=== PATIENT | male | born 1955 | race Caucasian/White ===

== ENCOUNTER 2017-11-25 09:15 | Observation (INO) | payer MEDICARE ==
[2017-11-25] MEDS ORDERED: SODIUM CHLORIDE 0.9% 1,000 ML IV STA (09:27)
[2017-11-25] MEDS ORDERED: MECLIZINE 12.5 MG TAB PO STA (09:28)
--- NOTE | 2017-11-25 09:30 | ED ---
Dizziness HPI - General Chief Complaint: Dizziness Stated Complaint: Nauseated, vomiting , Dizziness Time Seen by Provider: 11/25/17 09:15 Source: patient, EMS, RN notes reviewed Mode of arrival: EMS Limitations: no limitations - History of Present Illness Initial Comments: This is a 62-year-old male with a history of atrial fibrillation who woke up this morning with dizziness nausea vomiting. He vomited once prior to arrival. He was nauseated and was given Zofran for EMS. He states he had 2 recent hospitalizations between [facility] for dizziness associated with atrial fibrillation. He denies any current palpitations chest pain or chills sweats no focal upper or lower extremity weakness. He states the dizziness is quite profound and it is improved when he closes his eyes. He has no other complaints he has had some sinus congestion but no rhinorrhea no earaches sore throat or nose no cough or phlegm production. He is visiting from [place] at this time. MD Complaint: dizziness, lightheadedness - Related Data Home Medications Medication Instructions Recorded Confirmed ALPRAZolam [Xanax] 0.25 mg PO HS PRN 11/25/17 11/25/17 Aspirin EC [Ecotrin] 650 mg PO ONCE 11/25/17 11/25/17 Meclizine [Antivert] 12.5 mg PO TID PRN 11/25/17 11/25/17 Metoprolol Succinate (ER) [Toprol 12.5 mg PO DAILY@1200 11/25/17 11/25/17 XL] Allergies Allergy/AdvReac Type Severity Reaction Status Date / Time erythromycin base AdvReac Abdominal Verified 11/25/17 10:26 Pain Review of Systems ROS Statement: Those systems with pertinent positive or pertinent negative responses have been documented in the HPI. ROS Other: All systems not noted in ROS Statement are negative. Past Medical History Past Medical History: Atrial Fibrillation Past Surgical History: Bowel Resection Past Psychological History: No Psychological Hx Reported Smoking Status: Never smoker Past Alcohol Use History: None Reported Past Drug Use History: None Reported General Exam - General Exam Comments Initial Comments: This is a well-developed well-nourished awake alert oriented 3 male Limitations: no limitations General appearance: alert, in no apparent distress Head exam: Present: atraumatic, normocephalic, normal inspection Eye exam: Present: normal appearance, PERRL, EOMI. Absent: scleral icterus, conjunctival injection, periorbital swelling ENT exam: Present: normal exam, mucous membranes moist Neck exam: Present: normal inspection. Absent: tenderness, meningismus, lymphadenopathy Respiratory exam: Present: normal lung sounds bilaterally. Absent: respiratory distress, wheezes, rales, rhonchi, stridor Cardiovascular Exam: Present: regular rate, normal rhythm, normal heart sounds. Absent: systolic murmur, diastolic murmur, rubs, gallop, clicks GI/Abdominal exam: Present: soft, normal bowel sounds. Absent: distended, tenderness, guarding, rebound, rigid Extremities exam: Present: normal inspection, full ROM, normal capillary refill. Absent: tenderness, pedal edema, joint swelling, calf tenderness Back exam: Present: normal inspection Neurological exam: Present: alert, oriented X3, CN II-XII intact Psychiatric exam: Present: normal affect, normal mood Skin exam: Present: warm, dry, intact, normal color. Absent: rash Course Vital Signs 11/25/17 11/25/17 09:19 11:05 Temperature 97.8 F Pulse Rate 97 89 Respiratory 18 18 Rate Blood Pressure 133/77 135/77 O2 Sat by Pulse 99 97 Oximetry EKG Findings - EKG Results: EKG: interpreted by ERMD, sinus rhythm (Sinus rhythm rate of 84. Interval 146 QRS duration 78 QT since QTC of 360/434 evidence a right atrial enlargement no acute ST-T wave changes.) Medical Decision Making - Medical Decision Making I did reevaluate patient several occasions he still persistently having dizziness in spite of medications. The patient will be admitted for evaluation by neurology. Concerns are intractable vertigo possible posterior circulation involvement - Lab Data Result diagrams: 11/25/17 09:44 11/25/17 09:44 Lab Results 11/25/17 11/25/17 11/25/17 Range/Units 09:44 09:44 09:44 WBC 5.7 (3.8-10.6) k/uL RBC 5.22 (4.30-5.90) m/uL Hgb 15.7 (13.0-17.5) gm/dL Hct 45.7 (39.0-53.0) % MCV 87.5 (80.0-100.0) fL MCH 30.0 (25.0-35.0) pg MCHC 34.3 (31.0-37.0) g/dL RDW 12.5 (11.5-15.5) % Plt Count 187 (150-450) k/uL Neutrophils % 68 % Lymphocytes % 18 % Monocytes % 7 % Eosinophils % 3 % Basophils % 1 % Neutrophils # 3.9 (1.3-7.7) k/uL Lymphocytes # 1.0 (1.0-4.8) k/uL Monocytes # 0.4 (0-1.0) k/uL Eosinophils # 0.1 (0-0.7) k/uL Basophils # 0.1 (0-0.2) k/uL Sodium 142 (137-145) mmol/L Potassium 4.1 (3.5-5.1) mmol/L Chloride 107 (98-107) mmol/L Carbon Dioxide 24 (22-30) mmol/L Anion Gap 11 mmol/L BUN 17 (9-20) mg/dL Creatinine 1.14 (0.66-1.25) mg/dL Est GFR (MDRD) Af Amer >60 (>60 ml/min/1.73 sqM) Est GFR (MDRD) Non-Af >60 (>60 ml/min/1.73 sqM) Glucose 101 H (74-99) mg/dL Calcium 9.7 (8.4-10.2) mg/dL Magnesium 1.7 (1.6-2.3) mg/dL Total Bilirubin 0.9 (0.2-1.3) mg/dL AST 26 (17-59) U/L ALT 33 (21-72) U/L Alkaline Phosphatase 64 (38-126) U/L Total Creatine Kinase 88 (55-170) U/L CK-MB (CK-2) 0.6 (0.0-2.4) ng/mL CK-MB (CK-2) Rel Index 0.7 Troponin I <0.012 (0.000-0.034) ng/mL Total Protein 6.5 (6.3-8.2) g/dL Albumin 4.1 (3.5-5.0) g/dL Urine Color Urine Appearance (Clear) Urine pH (5.0-8.0) Ur Specific [place] (1.001-1.035) Urine Protein (Negative) Urine Glucose (UA) (Negative) Urine Ketones (Negative) Urine Blood (Negative) Urine Nitrite (Negative) Urine Bilirubin (Negative) Urine Urobilinogen (<2.0) mg/dL Ur Leukocyte Esterase (Negative) 11/25/17 Range/Units 10:51 WBC (3.8-10.6) k/uL RBC (4.30-5.90) m/uL Hgb (13.0-17.5) gm/dL Hct (39.0-53.0) % MCV (80.0-100.0) fL MCH (25.0-35.0) pg MCHC (31.0-37.0) g/dL RDW (11.5-15.5) % Plt Count (150-450) k/uL Neutrophils % % Lymphocytes % % Monocytes % % Eosinophils % % Basophils % % Neutrophils # (1.3-7.7) k/uL Lymphocytes # (1.0-4.8) k/uL Monocytes # (0-1.0) k/uL Eosinophils # (0-0.7) k/uL Basophils # (0-0.2) k/uL Sodium (137-145) mmol/L Potassium (3.5-5.1) mmol/L Chloride (98-107) mmol/L Carbon Dioxide (22-30) mmol/L Anion Gap mmol/L BUN (9-20) mg/dL Creatinine (0.66-1.25) mg/dL Est GFR (MDRD) Af Amer (>60 ml/min/1.73 sqM) Est GFR (MDRD) Non-Af (>60 ml/min/1.73 sqM) Glucose (74-99) mg/dL Calcium (8.4-10.2) mg/dL Magnesium (1.6-2.3) mg/dL Total Bilirubin (0.2-1.3) mg/dL AST (17-59) U/L ALT (21-72) U/L Alkaline Phosphatase (38-126) U/L Total Creatine Kinase (55-170) U/L CK-MB (CK-2) (0.0-2.4) ng/mL CK-MB (CK-2) Rel Index Troponin I (0.000-0.034) ng/mL Total Protein (6.3-8.2) g/dL Albumin (3.5-5.0) g/dL Urine Color Yellow Urine Appearance Clear (Clear) Urine pH 7.0 (5.0-8.0) Ur Specific [place] 1.016 (1.001-1.035) Urine Protein Trace H (Negative) Urine Glucose (UA) Negative (Negative) Urine Ketones Negative (Negative) Urine Blood Negative (Negative) Urine Nitrite Negative (Negative) Urine Bilirubin Negative (Negative) Urine Urobilinogen <2.0 (<2.0) mg/dL Ur Leukocyte Esterase Negative (Negative) - Radiology Data Radiology results: report reviewed (I did review the imaging and reports no acute findings.), image reviewed Disposition Clinical Impression: Dizziness of unknown cause Disposition: ADMITTED IP TO THIS [facility] Condition: Stable Referrals: Nonstaff,Physician [Primary Care Provider] - 1-2 days
[2017-11-25 10:10] LABS: Basophils # (A) 0.1 k/uL (0-0.2); Basophils % (A) 1 %; Eosinophils # (A) 0.1 k/uL (0-0.7); Eosinophils % (A) 3 %; HCT 45.7 % (39.0-53.0); HGB 15.7 gm/dL (13.0-17.5); Lymphocytes % (A) 18 %; MCHC 34.3 g/dL (31.0-37.0); MCV 87.5 fL (80.0-100.0); Mean Platelet Volume 7.6; Monocytes # (A) 0.4 k/uL (0-1.0); Monocytes % (A) 7 %; Neutrophils # (A) 3.9 k/uL (1.3-7.7); Neutrophils % (A) 68 %; Platelet Count 187 k/uL (150-450); RBC 5.22 m/uL (4.30-5.90); RDW 12.5 % (11.5-15.5); WBC 5.7 k/uL (3.8-10.6)
[2017-11-25 10:15] LABS: ALT 33 U/L (21-72); AST 26 U/L (17-59); Albumin 4.1 g/dL (3.5-5.0); Alkaline Phosphatase 64 U/L (38-126); Anion Gap 11 mmol/L; Blood Urea Nitrogen 17 mg/dL (9-20); Calcium 9.7 mg/dL (8.4-10.2); Carbon Dioxide 24 mmol/L (22-30); Chloride 107 mmol/L (98-107); Glucose 101 mg/dL (74-99); Magnesium 1.7 mg/dL (1.6-2.3); Potassium 4.1 mmol/L (3.5-5.1); Sodium 142 mmol/L (137-145); Total Bilirubin 0.9 mg/dL (0.2-1.3); Total Protein 6.5 g/dL (6.3-8.2)
--- NOTE | 2017-11-25 10:21 | CT ---
EXAMINATION TYPE: CT brain wo con DATE OF EXAM: 11/25/2017 COMPARISON: NONE HISTORY: Dizziness, Nausea, Vomiting CT DLP: 1054.[address] of the brain was performed. The ventricles, basal cisterns and sulci overlying the cerebral convexities demonstrate mild enlargem ent. There is no evidence for intracranial hemorrhage or sulcal effacement. There is decreased attenuation about the periventricular white matter and deep white matter of both c erebral hemispheres, compatible with chronic small vessel ischemia. Differential diagnosis does inclu de demyelination. No mass effects are seen.No midline shift. Osseous calvarium is intact. If symptoms persist consider MRI. IMPRESSION: 1. Age related atrophic and chronic small vessel ischemic change without acute intracranial process s een at this time.
[2017-11-25 10:26] LABS: Creatine Kinase 88 U/L (55-170)
[2017-11-25 10:39] LABS: Creatine Kinase MB 0.6 ng/mL (0.0-2.4); Troponin I <0.012 ng/mL (0.000-0.034)
[2017-11-25 11:06] LABS: Appearance,Urine Clear (Clear); Color,Urine Yellow; Protein,Urine Trace (Negative); Specific Gravity,Urine 1.016 (1.001-1.035)
[2017-11-25 11:07] LABS: Bilirubin,Urine Negative (Negative); Blood,Urine Negative (Negative); Glucose,Urine (UA) Negative (Negative); Ketones,Urine Negative (Negative); Leukocyte Esterase,Urine Negative (Negative); Nitrite,Urine Negative (Negative); Urobilinogen,Urine <2.0 mg/dL (<2.0)
[2017-11-25] MEDS ORDERED: NALOXONE 0.4 MG/ML 1 ML VIAL IV PRN (12:48)
[2017-11-25] MEDS ORDERED: MECLIZINE 12.5 MG TAB PO PRN ×2 (12:51→19:43)
[2017-11-25] MEDS ORDERED: ALPRAZolam 0.25 MG TAB PO PRN (12:51)
[2017-11-25] MEDS ORDERED: ASPIRIN 325 MG TAB PO ONE (13:00)
[2017-11-25] MEDS: SODIUM CHLORIDE 0.9% 1,000 ML IV SCH (13:45)
[2017-11-25] MEDS ORDERED: ACETAMINOPHEN TAB 325 MG TAB PO PRN (14:07)
[2017-11-25] MEDS ORDERED: RX INFO: IV CONTRAST WAS GIVEN 1 EACH MISC MISCELLANE PRN (14:12)
--- NOTE | 2017-11-25 14:37 | P.HPIM ---
History of Present Illness H&P Date: 11/25/17 Chief Complaint: Dizziness 62-year-old male with a history of atrial fibrillation who woke up this morning with dizziness, nausea and vomiting. He vomited once prior to arrival to the ER. He was nauseated and was given Zofran for EMS. He states he had 2 recent hospitalizations between [facility] for dizziness associated with atrial fibrillation. He had an echocardiogram during one of his hospitalizations and that showed normal LV function, grade 1 diastolic dysfunction. Upon review of the echocardiogram report there was no gross valvular abnormalities noted. He denies any current palpitations, chest pain or shortness of breath. No focal tingling, numbness or weakness. He denied any slurred speech, double vision or blurry vision. He states the dizziness is quite profound and it is improved when he closes his eyes. He describes it as a spinning sensation and imbalance, he is afraid to get up and walk because he knows he will fall if he doesn't that. He never had this type of dizziness in the past. Patient has history of noncompliance with medications, he is supposed to take metoprolol and xarelto for his paroxysmal atrial fibrillation but he has not taken the xarelto over the last month. He has no other complaints other than some sinus congestion but no rhinorrhea, no earaches, sore throat, no cough or phlegm production. He is visiting from [place] at this time. Review of Systems 12 point review of system was performed, negative except for HPI Past Medical History Past Medical History: Atrial Fibrillation Additional Past Medical History / Comment(s): ALLERGIC rhinitis, anxiety, suspected sleep apnea History of Any Multi-Drug Resistant Organisms: None Reported Past Surgical History: Bowel Resection Past Psychological History: No Psychological Hx Reported Smoking Status: Never smoker Past Alcohol Use History: None Reported Past Drug Use History: None Reported - Past Family History Father Family Medical History: Hypertension Medications and Allergies Home Medications Medication Instructions Recorded Confirmed Type ALPRAZolam [Xanax] 0.25 mg PO HS PRN 11/25/17 11/25/17 History Aspirin EC [Ecotrin] 650 mg PO ONCE 11/25/17 11/25/17 History Meclizine [Antivert] 12.5 mg PO TID PRN 11/25/17 11/25/17 History Metoprolol Succinate (ER) [Toprol 12.5 mg PO DAILY@1200 11/25/17 11/25/17 History XL] Allergies Allergy/AdvReac Type Severity Reaction Status Date / Time erythromycin base AdvReac Abdominal Verified 11/25/17 10:26 Pain Physical Exam Vitals: Vital Signs Temp Pulse Resp BP Pulse Ox 11/25/17 11:05 89 18 135/77 97 11/25/17 09:19 97.8 F 97 18 133/77 99 Intake and Output 11/24/17 11/25/17 11/25/17 22:59 06:59 14:59 Other: Weight 70.307 kg Patient Weight 11/26/17 06:59 Weight 70.307 kg Constitutional: No acute distress, conversant, pleasant Eyes:Anicteric sclerae, moist conjunctiva, no lid-lag, PERRLA, ENMT: Oropharynx clear, no erythema, exudates Neck: Supple, FROM, no masses, or JVD, No carotid bruits, No thyromegaly Lungs: Clear to auscultation, Clear to percussion, Normal respiratory effort, no accessory muscle use Cardiovascular: Heart regular in rate and rhythm, No murmurs, gallops, or rubs, No peripheral edema Abdominal: Soft, Nontender, no guarding, rebound or rigidity, Normoactive bowel sounds, No hepatomegaly, No splenomegaly, No palpable mass Skin: Normal temperature, tone, texture, turgor, no induration, No subcutaneous nodules, No rash, lesions, No ulcers Extremities: No digital cyanosis, No clubbing, Pedal pulses intact and symmetrical, Radial pulses intact and symmetrical, No calf tenderness Psychiatric: Alert and oriented to person, place and time, appropriate affect, intact judgement Neuro: Muscles Strength 5/5 in all 4 extremities, Sensation to light touch grossly present throughout, Cranial nerves II-XII grossly intact, no focal sensory deficits Results CBC & Chem 7: 11/25/17 09:44 11/25/17 09:44 Labs: Abnormal Lab Results - Last 24 Hours (Table) 11/25/17 11/25/17 Range/Units 09:44 10:51 Glucose 101 H (74-99) mg/dL Urine Protein Trace H (Negative) Assessment and Plan Plan: #1 Acute vertigo/dizziness: Rule out transient ischemic attack versus stroke posterior circulation Medical records from [facility] Labs reviewed Admit to observation Physical therapy and occupational therapy Consult neurology Meclizine when necessary Aspirin 325 mg by mouth daily MRI of the brain to rule out stroke Lipid profile CT angiogram of the head and neck to rule out's stenosis #2 paroxysmal atrial fibrillation: Currently in sinus rhythm Continue metoprolol and xarelto #3 DVT prophylaxis: SCDs
--- NOTE | 2017-11-25 15:44 | CT ---
EXAMINATION TYPE: CT angio head neck DATE OF EXAM: 11/25/2017 HISTORY: Dizziness today. COMPARISON: MRI CT dated 11/25/2017 CT DLP: 293.8 mGycm. Automated Exposure Control for Dose Reduction was Utilized. TECHNIQUE: CTA scan of the neck is performed with IV Contrast, patient injected with 65 mL of Omnipa que 350, axial images are obtained, coronal and sagittal reformatted images are reviewed. Three-D rec onstructed images are created on an independent workstation and reviewed. FINDINGS: Carotid/Vascular Structures: There is a normal anatomic branch pattern of the great vessels from the aortic arch. The common carotid arteries are patent bilaterally as are the carotid bifurcations and v isualized portions of the internal carotid arteries without hemodynamically significant stenosis, vega cific and noncalcific atheromatous plaquing. No focal outpouching, dissection, or aneurysm is seen. N o occlusion is noted. The left vertebral artery is codominant aerated no significant stenosis. Some atherosclerosis is seen of the proximal vertebral artery of less than 50% luminal narrowing. Other: Mild centrilobular emphysematous changes are seen within the lung apices. Osseous structures a re intact. Paranasal sinuses are well aerated and their visualized portions as are the mastoid air ce lls. Multilevel mild degenerative changes of the cervical spine are seen. Small posterior disc osteop hyte complex at C6-C7 creates mild spinal canal stenosis. The thyroid gland is unremarkable. Parotid glands and submandibular glands are symmetric. No gross evidence of adenopathy. Oropharynx is patent. Valleculae and piriform sinuses are unremarkable. IMPRESSION: No hemodynamically significant stenosis within either carotid arterial system is visuali zed. No evidence of vascular dissection, aneurysm, or occlusion.
--- NOTE | 2017-11-25 17:12 | MR ---
EXAMINATION TYPE: MR brain wo con DATE OF EXAM: 11/25/2017 COMPARISON: CT brain earlier today HISTORY: vertigo per order. TECHNIQUE: Multiplanar, multisequence imaging of the brain and brainstem is performed without IV cont rast. FINDINGS: Diffusion weighted images demonstrate no evidence of a recent infarct or other diffusion abnormality. There is no extraaxial fluid collection or significant white matter signal abnormality. The ventricu lar system and cisternal spaces are normal in size and appearance. The brain volume is age appropria te. Midline structures demonstrate normal morphology. The craniocervical junction appears within normal limits. Normal vascular flow voids are present. The visualized sinuses are clear and the globes are i ntact. Some patchy increased fluid signal right mastoid air cells as seen on axial image 3. IMPRESSION: No evidence of a recent infarct. Possible mild right-sided mastoiditis, correlate clinica lly otherwise fairly unremarkable study.
[2017-11-25] MEDS: RIVAROXABAN 15 MG TAB PO SCH (17:35)
[2017-11-25] MEDS: ASPIRIN 325 MG TAB PO STA ×2 (17:36→17:44)
[2017-11-26 07:28] LABS: Basophils % (A) 1 %; Eosinophils # (A) 0.2 k/uL (0-0.7); Eosinophils % (A) 4 %; HCT 41.1 % (39.0-53.0); HGB 13.8 gm/dL (13.0-17.5); Lymphocytes # (A) 1.1 k/uL (1.0-4.8); Lymphocytes % (A) 20 %; MCH 29.7 pg (25.0-35.0); MCHC 33.4 g/dL (31.0-37.0); MCV 88.9 fL (80.0-100.0); Mean Platelet Volume 8.5; Monocytes # (A) 0.6 k/uL (0-1.0); Monocytes % (A) 11 %; Neutrophils # (A) 3.4 k/uL (1.3-7.7); Neutrophils % (A) 62 %; Platelet Count 184 k/uL (150-450); RBC 4.63 m/uL (4.30-5.90); RDW 13.5 % (11.5-15.5); WBC 5.5 k/uL (3.8-10.6)
[2017-11-26 07:29] VITALS: RESP 16
[2017-11-26 07:46] LABS: ALT 32 U/L (21-72); AST 20 U/L (17-59); Albumin 3.3 g/dL (3.5-5.0); Alkaline Phosphatase 52 U/L (38-126); Anion Gap 9 mmol/L; Blood Urea Nitrogen 16 mg/dL (9-20); Carbon Dioxide 25 mmol/L (22-30); Chloride 106 mmol/L (98-107); Cholesterol 148 mg/dL (<200); Glucose 109 mg/dL (74-99); HDL Cholesterol 44 mg/dL (40-60); LDL Cholesterol,Calculated 90 mg/dL (0-99); Magnesium 1.8 mg/dL (1.6-2.3); Phosphorus 2.8 mg/dL (2.5-4.5); Potassium 3.9 mmol/L (3.5-5.1); Sodium 140 mmol/L (137-145); Total Bilirubin 0.7 mg/dL (0.2-1.3); Total Protein 5.6 g/dL (6.3-8.2); Triglycerides 71 mg/dL (<150)
[2017-11-26] MEDS: RIVAROXABAN 15 MG TAB PO SCH (08:25)
[2017-11-26] MEDS ORDERED: ASPIRIN 325 MG TAB PO SCH (09:00)
--- NOTE | 2017-11-26 09:50 | CONS ---
CONSULTATION DATE OF CONSULTATION: 11/25/2017 CHIEF COMPLAINT: Dizziness. HISTORY OF PRESENT ILLNESS: Mr. Zhong is a pleasant 62-year-old male, who is being evaluated today on 11/25/2017 by the neurology service per the request of Dr. Wang for dizziness. The patient states that he woke up this morning and had a severe spinning sensation. He was unable to get out of the bed due to the severity of the dizziness. The symptoms would worsen with any movement. He was able to slowly get to his bedroom where he became quite nauseous and did vomit. He called 911 and he needed assistance to walk to the ambulance. He had another vomiting episode in the ambulance. He denies having any headache or lateralizing numbness or weakness. He states that he has had vertigo in the past but never this severe. A CT scan of the brain was done in the emergency room which showed generalized atrophy and small-vessel ischemic changes. A CT angiogram of the brain and neck were normal. His CBC, comprehensive metabolic profile and urinalysis were reviewed and were normal. The patient did have an MRI of the brain which showed no intracranial abnormalities. There was evidence of right mastoiditis. At the time of my evaluation, he has been started on meclizine 12.5 mg. He reports slight improvement in the intensity of the symptoms and denies resolution. PAST MEDICAL HISTORY: Atrial fibrillation, anxiety disorder, sleep disorder, history of bowel resection. SOCIAL HISTORY: He denies any tobacco or alcohol or drug use. HOME MEDICATIONS: Reviewed in the chart. ALLERGIES: ERYTHROMYCIN. REVIEW OF SYSTEM: CONSTITUTIONAL: Negative. EYES: Negative. ENT: As mentioned above. CARDIOVASCULAR: As mentioned above. RESPIRATORY: Negative. NEUROLOGICAL: As mentioned above. GASTROINTESTINAL: As mentioned above. GENITOURINARY: Negative. DERMATOLOGICAL: Negative. PSYCHIATRIC: Positive for anxiety disorder. MUSCULOSKELETAL: Negative. ENDOCRINE: Negative. PHYSICAL EXAM: Vital signs show a temperature of 97.9, pulse 87, respiration 18, blood pressure 123/76. GENERAL APPEARANCE: The patient is a well-developed male, who appears to be in no acute distress. HEENT: Normocephalic, atraumatic, no facial asymmetry is seen, extraocular muscles are intact with no nystagmus seen. NECK: Supple with no masses felt. CARDIOVASCULAR: Regular rate and rhythm. ABDOMEN: Nontender nondistended. Extremities showed no edema or clubbing. Neurological exam: The patient is alert aware and oriented x3. Speech and language are normal. Strength is full in all 4 extremities. Sensory exam was normal to light touch in all 4 extremities. No facial asymmetry is seen on cranial nerve testing. No tremors or seizure-like activity is seen. IMPRESSION: 1. Intractable vertigo. 2. Mastoiditis. RECOMMENDATION: The patient continues to have significant vertigo symptoms. His MRI and CT of the brain showed no intracranial abnormalities. The patient was reassured from that standpoint as his symptoms do not appear to be due to any neurological etiologies. I will consult ENT to evaluate the patient. Until then, I will increase his Antivert to 25 mg. Continue the rest of your current workup and management. I will continue to follow with you. Further recommendations to follow. Thank you for allowing me to participate in the care of your patient. If you have any questions, please feel free to contact me. YESENIA / EVETTE: [id number] /
[2017-11-26 11:47] VITALS: BP 138/72; PULSE 80; TEMP 98.5
[2017-11-26] MEDS ORDERED: METOPROLOL SUCCINATE (ER) 25 MG TAB.ER.24H PO SCH (12:00)
[2017-11-26] MEDS: SODIUM CHLORIDE 0.9% 1,000 ML IV SCH (14:10)
--- NOTE | 2017-11-26 14:36 | P.DS ---
Providers Date of admission: 11/25/17 12:48 Attending physician: Fabiana Wang DO Consults: 11/25/17 12:49 Consult Physician Routine Consulting Provider: Krysten Macdonald Consult Reason/Comments: Intractable dizziness Do you want consulting provider notified?: Yes 11/25/17 19:42 Consult Physician Routine Consulting Provider: Quinten Covington Reason/Comments: Vertigo, mastoiditis Do you want consulting provider notified?: Yes, Notify in am Primary care physician: Physician Nonstaff Hospital Course: 62-year-old male with a history of atrial fibrillation who woke up this morning with dizziness, nausea and vomiting. He vomited once prior to arrival to the ER. He was nauseated and was given Zofran for EMS. He states he had 2 recent hospitalizations between [facility] [place] for dizziness associated with atrial fibrillation. He had an echocardiogram during one of his hospitalizations and that showed normal LV function, grade 1 diastolic dysfunction. Upon review of the echocardiogram report there was no gross valvular abnormalities noted. He denies any current palpitations, chest pain or shortness of breath. No focal tingling, numbness or weakness. He denied any slurred speech, double vision or blurry vision. He states the dizziness is quite profound and it is improved when he closes his eyes. He describes it as a spinning sensation and imbalance, he is afraid to get up and walk because he knows he will fall if he doesn't that. He never had this type of dizziness in the past. Patient has history of noncompliance with medications, he is supposed to take metoprolol and xarelto for his paroxysmal atrial fibrillation but he has not taken the xarelto over the last month. He has no other complaints other than some sinus congestion but no rhinorrhea, no earaches, sore throat, no cough or phlegm production. He is visiting from [place] at this time. Patient was admitted to the hospital for presumed transient ischemic attack/ acute CVA. In the emergency department had a head computed tomography scan that did not show any evidence of acute intracranial process. He was placed on telemetry which was showing normal sinus rhythm. His records from the outside hospitalization were reviewed. He had a complete CVA workup with CT angiogram of the head and neck and that did not show any evidence of stenosis or thrombosis in any of the arteries imaged. He also had a MRI of the brain that did not show any evidence of acute CVA. I did not order an echocardiogram because he just had one several months ago during his last hospitalization. He was evaluated by neurology service who thought that the vertigo was caused by some inner ear pathology vs. sec to sinusitis. Patient was advised to follow- up with ENT in the office for an exam. An appointment was scheduled for the patient at the ENT office. Currently patient is not having any further vertigo , he is able to get up and walk by himself. He was discharged home in a stable condition. Patient Condition at Discharge: Stable Plan - Discharge Summary Discharge Rx Participant: No New Discharge Prescriptions: New Acetaminophen Tab [Tylenol] 650 mg PO Q6HR PRN tab PRN Reason: Mild Pain Or Fever > 100.5 Aspirin 325 mg PO DAILY tab Rivaroxaban [Xarelto] 15 mg PO BID-W/MEALS tab Continue Aspirin EC [Ecotrin] 650 mg PO ONCE Metoprolol Succinate (ER) [Toprol XL] 12.5 mg PO DAILY@1200 ALPRAZolam [Xanax] 0.25 mg PO HS PRN PRN Reason: Anxiety Meclizine [Antivert] 12.5 mg PO TID PRN 10 Days #30 tab PRN Reason: Vertigo Discharge Medication List ALPRAZolam [Xanax] 0.25 mg PO HS PRN 11/25/17 [History] Aspirin EC [Ecotrin] 650 mg PO ONCE 11/25/17 [History] Metoprolol Succinate (ER) [Toprol XL] 12.5 mg PO DAILY@1200 11/25/17 [History] Acetaminophen Tab [Tylenol] 650 mg PO Q6HR PRN tab 11/26/17 [Rx] Aspirin 325 mg PO DAILY tab 11/26/17 [Rx] Meclizine [Antivert] 12.5 mg PO TID PRN 10 Days #30 tab 11/26/17 [Rx] Rivaroxaban [Xarelto] 15 mg PO BID-W/MEALS tab 11/26/17 [Rx] Follow up Appointment(s)/Referral(s): Quinten Covington DO [Doctor of Osteopathic Medicine] - 12/04/17 9:45 am Nonstaff,Physician [Primary Care Provider] - 1-2 days Discharge Disposition: HOME SELF-CARE
== END 2017-11-26 14:11 | disposition home or self-care (01) ==
LOC: EC 09:15 → 3OBS 12:48
PROVIDERS: ADMIT Internal Medicine; ATTEND Internal Medicine
DX: H70.91 Unspecified mastoiditis, right ear (principal); F41.9 Anxiety disorder, unspecified; I48.0 Paroxysmal atrial fibrillation; Z91.14 Patient's other noncompliance with medication regimen; Z79.82 Long term (current) use of aspirin; Z79.899 Other long term (current) drug therapy; Z88.1 Allergy status to other antibiotic agents; Z82.49 Family history of ischemic heart disease and other diseases of the circulatory system; Z90.49 Acquired absence of other specified parts of digestive tract; G47.9 Sleep disorder, unspecified
CPT/HCPCS: 99285 ×2; 96360 ×2; 96361 ×4; 36415; 93005; 97161; 80061; 80053 ×2; 82550; 82553; 83735 ×2; 84100; 84484; 85025 ×2; 81003; 70496; 70450; 70498; 70551; G0378 ×2; Q9967

== ENCOUNTER 2018-04-15 11:50 | Day surgery (SDC) | payer MEDICARE ==
[2018-04-13 09:57] VITALS: BMI 23.4
[~2018-04-15 11:50] MED LIST: LACTATED RINGERS 1,000 ML IV SCH; LIDOCAINE 1% 20 ML VIAL (10MG/ML) FOR IV START INTRADERMA PRN; MIDAZOLAM 2 MG/2 ML VIAL IV PRN; Pre Op ABX Message 1 EACH MISC MISCELLANE ONE
[2018-04-15] MEDS ORDERED: ALBUTEROL NEB (CONC) 2.5 MG/0.5 ML INHALATION ONE (12:00)
[2018-04-15] MEDS ORDERED: ATROPINE SULFATE 0.4 MG/ML 1 ML VIAL IM ONE (12:00)
[2018-04-15] MEDS ORDERED: LIDOCAINE 2% (PF) 20 MG/ML 10 ML AMP INHALATION STA (12:15)
[2018-04-15 12:23] VITALS: RESP 16; TEMP 98.1
[2018-04-15] MEDS ORDERED: PROPOFOL 10 MG/ML 20 ML VIAL IV ONE (12:47)
[2018-04-15] MEDS ORDERED: GLYCOPYRROLATE 0.2 MG/ML 2 ML VIAL ONE (12:47)
[2018-04-15] MEDS ORDERED: KETAMINE 10 MG/ML 20 ML VIAL ONE (12:47)
[2018-04-15] MEDS ORDERED: MIDAZOLAM 2 MG/2 ML VIAL ONE (12:47)
[2018-04-15] MEDS ORDERED: LIDOCAINE 1% INJ 10MG/ML (20 ML MDV) INTRATRACH ONE (13:04)
[2018-04-15 14:01] VITALS: BP 119/72; PULSE 100
--- NOTE | 2018-04-15 19:08 | PCN ---
PROCEDURE NOTE PROCEDURES: Bronchoscopy, airway examination, therapeutic lavage, BAL right middle lobe. PREOP DIAGNOSIS: Cough. POSTOP DIAGNOSIS: Cough. OPERATORS: Dr. Barroso and Dr. Carrizales. There was informed consent. There was universal timeout. ANESTHESIA: LINING IRONER provided general anesthesia or unconscious sedation. PROCEDURE: The procedure was done in room #1. After the patient was adequately sedated and being fully monitored, the bronchoscope was inserted through the right nostril. It passed through the right nasopharynx into the oropharynx. The hypopharynx was identified and topicalized. The hypopharyngeal structures appeared normal including anterior commissure, true cords, false cords, arytenoids, piriform sinuses, right and left vallecula and epiglottis. After topicalization, the bronchoscope was pushed through the glottic opening into the trachea. Trachea appeared normal. Trachea ora was sharp. Right and left mainstem were topicalized. Right upper lobe and its 3 segments right middle lobe and its 2 segments right lower lobe and its 5 segments left upper lobe proper and its 2 segments the lingula and its 2 segments and the left lower lobe and its 4 segments all appeared completely normal. There are no masses or tumors. The patient tolerated the procedure well. The bronchoscope was wedged into the right middle lobe. The BAL took place. The patient tolerated the procedure well and the bronchoscope was withdrawn. The patient will be recovered. MMODL / IJN: [id number] /
[2018-04-15 20:12] LABS: Appearance,BF Hazy; Color,BF Red; Nucleated Cells, Body Fluid 45 /uL; RBC, Body Fluid 2800 /uL
[2018-04-15 20:13] LABS: Mononuclear WBC,Body Fluid 42 %; Polynuclear WBC,Body Fluid 58 %
== END 2018-04-15 13:50 | disposition home or self-care (01) ==
LOC: ORWHC2ENDO 11:50
PROVIDERS: ATTEND Internal Medicine Critical Care Medicine
DX: R05 Cough (principal); I48.91 Unspecified atrial fibrillation; N40.0 Benign prostatic hyperplasia without lower urinary tract symptoms; I10 Essential (primary) hypertension; J30.89 Other allergic rhinitis; Z79.899 Other long term (current) drug therapy; Z88.1 Allergy status to other antibiotic agents
CPT/HCPCS: 94640; 88108; 88305; 89050; 87252; 87070; 87205; 87116; 87102; 87206; 31624; J2250; J0461; J2001 ×2; J2704; 87496; 87498; 87502; 87529; 87634; 87798

== ENCOUNTER 2024-03-11 03:07 | Emergency (ER) | payer MEDICARE ==
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
[2024-03-11] MEDS: dexAMETHasone 2 MG TAB PO STA (06:17)
[2024-03-11] MEDS: AMOXIC-POT CLAV 875-125MG 1 EACH TAB PO STA (06:17)
--- NOTE | 2024-03-11 07:19 | XR ---
EXAM: XR Chest, 2 Views CLINICAL HISTORY: Its. reason XR Reason: cough TECHNIQUE: Frontal and lateral views of the chest. COMPARISON: No relevant prior studies available. FINDINGS: Lungs: Slight hyperinflation of the lungs and attenuation of the peripheral lung markings which may partly reflect good inspiratory effort chest. Mild emphysema can give this appearance. Mild streaky densities in the lung bases, likely atelectasis. Pleural space: Unremarkable. No pneumothorax. Heart: Unremarkable. No cardiomegaly. Mediastinum: Unremarkable. Normal mediastinal contour. Bones/joints: Degenerative endplate changes in the mid to lower thoracic spine. No acute fracture. IMPRESSION: 1. Mild bibasilar atelectasis. Follow-up to exclude early infiltrate as indicated. 2. Findings suggestive of mild emphysema
[2024-03-11 07:30] VITALS: BP 120/72; PULSE 80; RESP 18; TEMP 97.8
== END 2024-03-11 06:33 | disposition home or self-care (01) ==
LOC: EC 03:07
DX: J18.9 Pneumonia, unspecified organism (principal); Z88.1 Allergy status to other antibiotic agents
CPT/HCPCS: 93005; 87636; 71046; 99284; J8540

== ENCOUNTER 2024-04-08 15:52 | Inpatient (IN) | payer MEDICARE ==
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
--- NOTE | 2024-04-08 17:17 | XR ---
EXAMINATION TYPE: XR Hip 2 views RT and AP Pelvis DATE OF EXAM: 04/08/2024 COMPARISON: NONE HISTORY: 68-year-old male fall injury FINDINGS: Bilateral iliac horns. SI joints appear symmetric and intact as does the pubic symphysis. There is at least mild degenerative change both hips with prominent marginal spurring. Superior femoral head nec k junction osseous excrescences are present. There is a basicervical fracture of the right femoral ne ck displaced posteriorly by 1.4 cm. Nonspecific 1.1 cm calcification in the lower left pelvis may be within the prostate gland. Bilateral iliac horns. IMPRESSION: 1. Basicervical fracture of the right femoral neck with 1.4 cm of posterior displacement. 2. Mild bilateral hip OA. 3. Bilateral iliac horns suggesting nail-patella syndrome. Clinically correlate.
--- NOTE | 2024-04-08 17:22 | XR ---
EXAMINATION TYPE: XR chest 1V DATE OF EXAM: 04/08/2024 COMPARISON: 03/11/2024 HISTORY: 68-year-old male presurgical clearance TECHNIQUE: Single frontal view of the chest is obtained. FINDINGS: Heart normal size. Aortopulmonary vasculature within normal limits. Mild interstitial prom inence of the chronic appearance. No consolidation or pleural effusion. IMPRESSION: Chronic appearing changes. No acute process seen.
[2024-04-08] MEDS: HYDROmorphone 0.5 MG/0.5 ML SYRINGE IVP STA (17:26)
[2024-04-08] MEDS ORDERED: MAG HYDROX/AL HYDROX/SIMETH 30 ML CUP PO PRN (17:27)
[2024-04-08] MEDS ORDERED: NALOXONE 0.4 MG/ML 1 ML VIAL IV PRN (17:27)
[2024-04-08] MEDS: DIPH,PERTUS(ACELL)TETVAC-LF 0.5 ML VIAL IM ONE (17:33)
[2024-04-08] MEDS: SODIUM CHLORIDE 0.9% 1,000 ML IV STA (17:37)
[2024-04-08] MEDS: SODIUM CHLORIDE 0.9% 500 ML 500 ML IV STA (17:37)
[2024-04-08] MEDS: SODIUM CHLORIDE 0.9% 1,000 ML IV SCH (17:39)
[2024-04-08 17:47] LABS: Basophils # (A) 0.1 k/uL (0-0.2); Basophils % (A) 1 %; Eosinophils # (A) 0.1 k/uL (0-0.7); Eosinophils % (A) 1 %; HCT 47.4 % (39.0-53.0); HGB 15.5 gm/dL (13.0-17.5); Lymphocytes # (A) 0.9 k/uL (1.0-4.8); Lymphocytes % (A) 10 %; MCH 29.6 pg (25.0-35.0); MCHC 32.8 g/dL (31.0-37.0); MCV 90.2 fL (80.0-100.0); Mean Platelet Volume 8.2; Monocytes # (A) 0.6 k/uL (0-1.0); Monocytes % (A) 7 %; Neutrophils # (A) 6.6 k/uL (1.3-7.7); Neutrophils % (A) 80 %; Platelet Count 229 k/uL (150-450); RBC 5.26 m/uL (4.30-5.90); RDW 13.3 % (11.5-15.5); WBC 8.3 k/uL (3.8-10.6)
[2024-04-08 17:58] LABS: ALT 17 U/L (4-49); AST 25 U/L (17-59); African American GFR (CKD) 70 (>60 ml/min/1.73 sqM); Albumin 4.4 g/dL (3.5-5.0); Alkaline Phosphatase 90 U/L (38-126); Anion Gap 4 mmol/L; Blood Urea Nitrogen 17 mg/dL (9-20); Calcium 9.9 mg/dL (8.4-10.2); Carbon Dioxide 27 mmol/L (22-30); Chloride 106 mmol/L (98-107); Glucose 104 mg/dL (74-99); Non-African American GFR(CKD) 61 (>60 ml/min/1.73 sqM); Sodium 137 mmol/L (137-145); Total Bilirubin 0.9 mg/dL (0.2-1.3); Total Protein 6.7 g/dL (6.3-8.2)
[2024-04-08 18:00] LABS: Partial Thromboplastin Time 23.5 sec (22.0-30.0); Prothrombin Time 10.9 sec (10.0-12.5)
[2024-04-08] MEDS ORDERED: FLUTICASONE NASAL 50MCG/SPRAY 16GM BTL EA NOSTRIL PRN (20:33)
[2024-04-08] MEDS ORDERED: SYMBICORT 160-4.5 MCG INHALER INHALATION PRN (20:33)
[2024-04-08] MEDS: polyethylene glycoL 3350 17 GM POWD.PACK PO SCH (22:37)
[2024-04-08] MEDS: FAMOTIDINE 20 MG TAB PO SCH (22:37)
[2024-04-08] MEDS: HYDROmorphone 0.5 MG/0.5 ML SYRINGE IVP PRN (23:04)
[2024-04-08 23:19] LABS: Amorphous Sediment,Urine Few /hpf; Appearance,Urine Turbid (Clear); Bilirubin,Urine Negative (Negative); Blood,Urine Negative (Negative); Color,Urine Colorless; Glucose,Urine (UA) 2+ (Negative); Hyaline Casts,Urine 4 /lpf (0-2); Ketones,Urine Negative (Negative); Leukocyte Esterase,Urine Negative (Negative); Mucus,Urine Rare /hpf; Nitrite,Urine Negative (Negative); Protein,Urine Negative (Negative); RBC,Urine <1 /hpf (0-5); Specific Gravity,Urine 1.014 (1.001-1.035); Squamous Epithelial Cell,Urine 1 /hpf (0-4); Urobilinogen,Urine <2.0 mg/dL (<2.0); WBC,Urine 2 /hpf (0-5)
[2024-04-09] MEDS: CYANOCOBALAMIN 500 MCG TAB PO SCH (07:03)
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
[2024-04-09] MEDS: SIMETHICONE 80 MG CHEWABLE PO STA ×2 (09:29→10:32)
--- NOTE | 2024-04-09 10:06 | CT ---
EXAMINATION TYPE: CT hip RT wo con DATE OF EXAM: 04/09/2024 COMPARISON: Radiograph 04/08/2024 HISTORY: 68-year-old male Surgical planning, right hip fracture TECHNIQUE: Contiguous axial scanning of the right hip without IV contrast. Coronal and sagittal recon structions performed. 3-D reconstructions generated on a dedicated independent workstation. CT DLP: 458.3 mGycm Automated exposure control for dose reduction was used. FINDINGS: Mild to moderate underlying degenerative change of the right hip with marginal spurring and some join t space narrowing. There is an obliquely oriented transcervical femoral neck fracture with anterior apex angulation. Ang ulation of approximately 49 degrees. Separation of the anterior fracture margin by 7 mm and impaction of the posterior fracture margin with minimal associated comminution due to the angulation deformity . The posterior iliac horns are not included in the [id number], seen on radiograph. Tejeda catheter i n place. Bladder is incompletely collapsed. Prominent intraluminal air relating to instrumentation. IMPRESSION: 1. TRANS-CERVICAL RIGHT FEMORAL NECK FRACTURE. THE FRACTURE LINE IS OBLIQUELY ORIENTED. ANTERIOR APEX ANGULATION OF 49 DEGREES WITH IMPACTION OF THE POSTERIOR FRACTURE MARGIN AND 7 MM ANTERIOR SEPARATIO N. 2. UNDERLYING MILD TO MODERATE RIGHT HIP OA. 3. KNOWN POSTERIOR ILIAC HORNS (SUGGESTING NAIL-PATELLA SYNDROME) NOT INCLUDED IN THE [id number], SEEN ON RADIOGRAPH. 4. TEJEDA CATHETER PLACED.
--- NOTE | 2024-04-09 12:13 | MR ---
EXAMINATION TYPE: MR Prostate wo/w con DATE OF EXAM: 04/09/2024 11:13 AM COMPARISON: CT 04/09/2024. CLINICAL INDICATION:Male, 68 years old with history of eval prostate - surgery 04/22; Evaluate prostat e, pt scheduled for prostate surgery 04-22-24. TECHNIQUE: Multi-planar, multi-sequence imaging of the pelvis is performed prior to and following the uncomplicated administration of bolus intravenous gadolinium. CONTRAST: 7 Gadavist Interpretive Criteria: PI-RADS v2.1 SERUM PSA: No data available. on No data available.. No data available. on No data available.. No data available. on No data available.. No data available. on No data available.. SURGICAL PATHOLOGY: No data available. FINDINGS: Prostatic dimensions: 4.6 x 5.7 x 4.2 cm. Ellipsoid Volume:57.66 CENTRAL GLAND (Central and Transition Zones/CZ+TZ): Low T2/higher DWI/low or ADC right anterior mid gland/apex lesion measuring 15 x 11 mm on T2-weighted imaging. There is arterial phase enhancement of this lesion. (PI-RADS 5) PERIPHERAL ZONE (PZ): Low T2/higher DWI/low or ADC right posterior peripheral zone mid gland/apex lesion measuring 15 x 11 mm on T2-weighted imaging. There is arterial phase enhancement of this lesion. (PI-RADS 5) SEMINAL VESICLES (SV): Symmetric and unremarkable. PERIPROSTATIC TISSUES: Unremarkable. LYMPH NODES: No enlarged pelvic lymph node. REMAINING PELVIS: Bladder wall is within normal limits given distention. Quintanilla catheter is in place. No abnormal free or organized intrapelvic fluid collection. No pathologic bowel dilation or mural thickening. No hernia visualized OSSEOUS STRUCTURES: There is edema within the proximal right femur from patient's known right proximal femur fracture. IMPRESSION: 1. * PI-RADS 5 lesion right posterior peripheral zone mid gland/base measuring 15 x 11 mm. * PI-RADS 5 lesion measuring 15 x 9 mm in the anterior central gland mid gland/apex. 2. Moderate BPH, estimated gland volume 57.66mL. 3. No suspicious osseous lesion. No lymphadenopathy. No evidence of prostate adenocarcinoma involving the periprostatic tissues. 4. Quintanilla catheter in place. 5. Known right proximal femur fracture.
[2024-04-09] MEDS: ACETAMINOPHEN TAB 325 MG TAB PO PRN (14:51)
--- NOTE | 2024-04-09 16:11 | P.GSCN ---
History of Present Illness Consult date: 04/09/24 Reason for Consult: Prostate cancer History of present illness: This is a 68-year-old male that presented to the hospital with right femur frac ture, plan to undergo surgical intervention with orthopedic surgery. He does have a known history of prostate cancer and currently is scheduled for robotic radical prostatectomy with al on April 22. Patient was to undergo prostate MRI prior to his surgery, although there was a concern if he undergoes a procedure he may be unable to undergo the MRI this urology was consulted. At this point he denies any voiding difficulties, denies any gross hematuria or dysuria, he does currently have a Quintanilla catheter in place. He was subsequently able to undergo the MRI this afternoon which showed evidence of a PI-RADS 5 lesion along the right side of the gland. Review of Systems - Constitutional Denies fever, Denies weight loss - Cardiovascular Denies chest pain, Denies shortness of breath - Gastrointestinal Reports as per HPI - Genitourinary Reports as per HPI - Neurological Denies headaches, Denies syncope Past Medical History Past Medical History: Atrial Fibrillation, Asthma, Cancer Additional Past Medical History / Comment(s): CHRONIC COUGH X 3YRS, severe post nasal drip, HX OF AFIB , HX OF sleep apnea NOT USING CPAP, current prostate cancer History of Any Multi-Drug Resistant Organisms: None Reported Past Surgical History: Appendectomy, Bowel Resection Additional Past Surgical History / Comment(s): Colonoscopy, bowel resection d/t obstruction/benign kristen foot 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 Pt resides in [place] and is in [place] visiting his father. He is independent. Smoking Status: Never smoker Past Alcohol Use History: None Reported Past Drug Use History: None Reported - Past Family History Father Family Medical History: Hypertension Additional Family Medical History / Comment(s): Father had a FL at the age of 95 yrs. He is now 96 yrs old. Mother Family Medical History: Dementia Additional Family Medical History / Comment(s): Mother is 95 yrs old. Medications and Allergies Home Medications Medication Instructions Recorded Confirmed Type ALPRAZolam [Xanax] 0.25 tab PO HS@1900 04/13/18 04/08/24 History ALPRAZolam [Xanax] 0.25 mg PO DAILY PRN 04/08/24 04/08/24 History Budesonide/Formoterol Fumarate 1 puff INHALATION RT-BID PRN 04/08/24 04/08/24 History [Symbicort 160-4.5 Mcg Inhaler] Cyanocobalamin [Vitamin B-12] 500 mcg PO DAILY@0700 04/08/24 04/08/24 History Fluticasone Nasal [place] [Flonase 2 spray EA NOSTRIL DAILY PRN 04/08/24 04/08/24 History Nasal [place]] Magnesium 250 mg PO DAILY@0704/08/24 04/08/24 History Multivit-Min/FA/Lycopen/Lutein 1 tab PO DAILY@0704/08/24 04/08/24 History [Centrum Silver Tablet] Prostate Supplement Otc 1 dose PO DAILY@0704/08/24 04/08/24 History dilTIAZem HCL [Cardizem CD] 120 mg PO BID@0700,1900 04/08/24 04/08/24 History polyethylene glycoL 3350 [Miralax] 17 gm PO W/SUPPER 04/08/24 04/08/24 History Allergies Allergy/AdvReac Type Severity Reaction Status Date / Time erythromycin base AdvReac Severe Abdominal Verified 04/08/24 18:28 Pain, gi upset Surgical - Exam Vital Signs Temp Pulse Resp BP Pulse Ox 98.4 F 75 16 122/72 96 04/08/24 16:04 04/08/24 16:04 04/08/24 16:04 04/08/24 16:04 04/08/24 16:04 - General no distress, moderate pain - ENT normal nares, normal mucosa - Respiratory normal expansion, normal respiratory effort - Abdomen Abdomen: soft, non tender, no distended - Psychiatric oriented to time, oriented to person, oriented to place Results - Labs 04/08/24 17:35 04/08/24 17:35 Abnormal Lab Results - Last 24 Hours (Table) 04/08/24 04/08/24 04/08/24 Range/Units 17:35 17:35 22:30 Lymphocytes # 0.9 L (1.0-4.8) k/uL Glucose 104 H (74-99) mg/dL Urine Glucose (UA) 2+ H (Negative) Amorphous Sediment Few H (None) /hpf Hyaline Casts 4 H (0-2) /lpf Urine Mucus Rare H (None) /hpf Diabetes panel 04/08/24 Range/Units 17:35 Sodium 137 (137-145) mmol/L Potassium 4.0 (3.5-5.1) mmol/L Chloride 106 (98-107) mmol/L Carbon Dioxide 27 (22-30) mmol/L BUN 17 (9-20) mg/dL Creatinine 1.21 (0.66-1.25) mg/dL Glucose 104 H (74-99) mg/dL Calcium 9.9 (8.4-10.2) mg/dL AST 25 (17-59) U/L ALT 17 (4-49) U/L Alkaline Phosphatase 90 (38-126) U/L Total Protein 6.7 (6.3-8.2) g/dL Albumin 4.4 (3.5-5.0) g/dL Calcium panel 04/08/24 Range/Units 17:35 Calcium 9.9 (8.4-10.2) mg/dL Albumin 4.4 (3.5-5.0) g/dL Pituitary panel 04/08/24 Range/Units 17:35 Sodium 137 (137-145) mmol/L Potassium 4.0 (3.5-5.1) mmol/L Chloride 106 (98-107) mmol/L Carbon Dioxide 27 (22-30) mmol/L BUN 17 (9-20) mg/dL Creatinine 1.21 (0.66-1.25) mg/dL Glucose 104 H (74-99) mg/dL Calcium 9.9 (8.4-10.2) mg/dL Adrenal panel 04/08/24 Range/Units 17:35 Sodium 137 (137-145) mmol/L Potassium 4.0 (3.5-5.1) mmol/L Chloride 106 (98-107) mmol/L Carbon Dioxide 27 (22-30) mmol/L BUN 17 (9-20) mg/dL Creatinine 1.21 (0.66-1.25) mg/dL Glucose 104 H (74-99) mg/dL Calcium 9.9 (8.4-10.2) mg/dL Total Bilirubin 0.9 (0.2-1.3) mg/dL AST 25 (17-59) U/L ALT 17 (4-49) U/L Alkaline Phosphatase 90 (38-126) U/L Total Protein 6.7 (6.3-8.2) g/dL Albumin 4.4 (3.5-5.0) g/dL Assessment and Plan Assessment: 68-year-old male with history of [place] 7 4+3) prostate cancer currently scheduled to undergo robotic radical prostatectomy on April 22. Prostate MRI showed no evidence of metastatic disease, disease is localized to the prostate. From my and we will plan on proceeding with a robotic prostatectomy once he cleared by orthopedic for any intervention. Discussed with him if he is not cleared to undergo surgery for April 22 and his surgery can be rescheduled for later in the summer otherwise as of right now we will plan on proceeding with a robotic prostatectomy pending orthopedic surgery clearance
[2024-04-09] MEDS: ALPRAZolam 0.25 MG TAB PO SCH (23:03)
--- NOTE | 2024-04-10 06:47 | P.PN ---
Subjective Progress Note Date: 04/10/24 No complaints other than right hip pain. Objective - Vital Signs Vital signs: Vital Signs Temp 97.9 F 04/10/24 01:49 Pulse 73 04/10/24 01:49 Resp 18 04/10/24 01:49 BP 126/73 04/10/24 01:49 Pulse Ox 97 04/10/24 01:49 FiO2 Intake & Output 04/09/24 04/09/24 04/10/24 06:59 18:59 06:59 Output Total 500 750 575 Balance -500 -750 -575 Weight 63.503 kg Output: Urine 500 750 575 Coude 500 Other: Voiding Method Indwelling Catheter Indwelling Catheter - Exam Resting comfortably in bed. Alert and able to answer questions. - Labs CBC & Chem 7: 04/08/24 17:35 04/08/24 17:35 Assessment and Plan Assessment: Displaced right transcervical femoral neck fracture Prostate cancer Nail-patella syndrome Plan: I met with the patient to discuss treatment options. Due to the nature of his fracture, age, and pre-existing arthritis in the right hip my suggestion was to proceed with a total hip replacement. The patient understands the potential risks and complications of this procedure. We'll plan on surgery later today.
[2024-04-10] MEDS ORDERED: ceFAZolin 1 GM/50 ML BAG (PMX) ONE (13:55)
[2024-04-10] MEDS ORDERED: ROCURONIUM 10 MG/ML (5 ML VIAL) IV ONE (13:55)
[2024-04-10] MEDS ORDERED: TRANEXAMIC 1,000 MG/100ML-NACL PREMIX BAG ONE (13:55)
[2024-04-10] MEDS ORDERED: fentaNYL (PF) 50 MCG/ML 2 ML AMP ONE (13:55)
[2024-04-10] MEDS ORDERED: MIDAZOLAM 2 MG/2 ML VIAL ONE (13:55)
[2024-04-10] MEDS ORDERED: GLYCOPYRROLATE 0.2 MG/ML 2 ML VIAL ONE (13:55)
[2024-04-10] MEDS ORDERED: PHENYLEPHRINE 10 MG/ML VIAL ONE (13:55)
[2024-04-10] MEDS ORDERED: LIDOCAINE 1% INJ 10MG/ML (20 ML MDV) ONE (13:55)
[2024-04-10] MEDS ORDERED: PROPOFOL 10 MG/ML 20 ML VIAL IV ONE (13:55)
[2024-04-10] MEDS ORDERED: NEOSTIGMINE 1 MG/ML 10 ML VIAL ONE (13:55)
[2024-04-10] MEDS ORDERED: SUCCINYLCHOLINE CHLORIDE 200 MG/10 ML VIAL IV ONE (13:55)
[2024-04-10] MEDS: LACTATED RINGERS 1,000 ML IV ONE (13:59)
[2024-04-10] MEDS: SODIUM CHLORIDE 0.9% 50 ML with ceFAZolin 2,000 MG IV ONE (13:59)
[2024-04-10] MEDS: SODIUM CHLORIDE 0.9% IV ONE (14:53)
[2024-04-10] MEDS: EPINEPHRINE IV ONE (14:53)
[2024-04-10] MEDS: VANCOMYCIN 1,000 MG VIAL MISCELLANE ONE (15:59)
[2024-04-10] MEDS ORDERED: NALOXONE 0.4 MG/ML 1 ML VIAL IV PRN (17:28)
[2024-04-10] MEDS ORDERED: HYDROmorphone 0.5 MG/0.5 ML SYRINGE IVP PRN (17:28)
--- NOTE | 2024-04-10 17:28 | P.OP ---
Date of Procedure: 04/10/24 Preoperative Diagnosis: 1. displaced right transcervical femoral neck fracture 2. Nonmetastatic prostate cancer 3. Nail-patella syndrome Postoperative Diagnosis: same Procedure(s) Performed: Right direct anterior total hip arthroplasty Implants: 1. Ferris Trident II Acetabular Cup, Size #54 2. [place] Accolade C Size #5 Femoral Stem, Standard Offset 3. Dual Mobility OD 42 mm, ID 28 mm, +4 mm neck Anesthesia: GETA Surgeon: Jack Martinez Attendance Clerk #1: Deo Leon Estimated Blood Loss (ml): 300 IV fluids (ml): 700 Pathology: other (Femoral head to pathology) Condition: stable Disposition: PACU Indications for Procedure: the patient is a very pleasant 68-year-old male with a medical history significant for nail-patella syndrome and nonmetastatic prostate cancer who sustained a ground-level fall resulting in a displaced transcervical right femoral neck fracture. I met with the patient preoperatively and discussed his x-ray and computed tomography scan findings. Given the patient's age, preinjury activity level, arthritic changes seen on both x-ray and computed tomography scan I recommended a total hip arthroplasty. We discussed the elevated risk of having a complication given his medical history of nail-patella syndrome as well as total hip arthroplasty in the setting of the femoral neck fracture. Risks discussed include, but are certainly not limited to, risks from anesthesia, superficial infection requiring local wound care or antibiotics, deep love- prosthetic joint infection and the treatment required to eradicate infection, intraoperative fracture, postoperative periprosthetic fracture, damage to local blood vessels or nerves particularly the lateral femoral cutaneous nerve, delayed wound healing requiring local wound care or possibly surgical debridement, hip dislocation, leg length discrepancy, soft tissue irritation around the total hip implant such as iliopsoas tendinitis or trochanteric bursitis, wear and osteolysis from the implants, squeaking or audible noises, groin pain, thigh pain, heterotopic ossification, stiffness, aseptic loosening of the implants, dissatisfaction with surgical outcome, need for revision surgery, DVT, PE, swelling of the operative extremity, acute coronary event, stroke, failure to thrive, and possibly loss of life or limb. The patient understands that while these are the most common complications after an elective hip replacement there are certainly other less common complications possible. They were given ample time to ask questions regarding the potential complications of a hip replacement. Following our discussion the patient provided their verbal and written consent to go forward with an elective total hip replacement. The patient understands this and agreed to proceed with a total hip replacement. Operative Findings: the patient had multiple deformities in his bilateral lower extremity secondary to nail-patella syndrome as well as flexion contractures of both elbows. The patient had very stiff, nonviable soft tissue making surgical exposure difficult. The patient's fracture pattern was subcapital and extended crossed the transcervical neck with the fracture fragment extending medially to the calcar several liters proximal to the calcar. The patient had poor bone quality so I elected to use cemented femoral fixation. Description of Procedure: The patient was identified in the preoperative holding area and the correct hip was marked with my initials. I reviewed the procedure and consent with the patient. All of their questions were answered. The patient was then brought back into the operating room by anesthesia. While on the [facility] anesthesia was administered by the anesthesia team. Preoperative antibiotics and tranexamic acid were also given. After the patient was under anesthesia I examined their ankles to determine their preoperative leg length discrepancy. The skin over the anterior aspect of the hip was shaved to remove hair over the site of planned incision. Both feet and ankles were padded with webril and boots for the [place] were applied. the patient had deformities of both lower legs and ankles due to his nail-patella syndrome making preoperative assessment of leg length discrepancy somewhat difficult, made worse by his femoral neck fracture. The patient was then carefully transferred onto the [place] table. A perineal post was immediately placed. The arms were placed on arm holders and were well-padded. Both boots were secured to the spars on the [place] table. The patient was positioned so that the pelvis was centered over the post. Nonsterile drapes were applied. A timeout was performed identifying the correct patient, operative extremity, and procedure. At this point fluoroscopy was brought in to take preoperative images of the pelvis and operative hip. Using the standing AP pelvis from the office as a template, a comparable image was obtained with fluoroscopy. A metallic bar was used to create a bi-ischial line for use as a reference to leg length adjustments during the procedure. Global offset was also measured on both the operative and nonoperative leg. Fluoroscopy was then brought out and a pre-scrub using a chlorhexidine scrub brush was performed. The operative limb was then prepped and draped in the standard sterile fashion. An anterior longitudinal incision was made lateral and distal to the ASIS. The skin and subcutaneous tissues were incised sharply. The underlying tensor fascia was identified and incised in its midportion. The fascia was dissected free from the underlying muscle and the muscle belly was retracted. A blunt tipped cobra retractor was placed over the superior neck under the muscle fibers of the gluteus minimus. The deep enveloping fascia of the tensor was incised. The anterior leash of vessels were then identified and cauterized. The fascia between the rectus and the capsule was then incised and the pre-capsular fat was excised. A second Cobra was placed inferior to the neck. The interval between the rectus and iliocapsularis and the hip capsule was developed and a retractor was placed carefully over the anterior rim of the acetabulum. A T-shaped anterior capsulotomy was performed and a large amount of blood was noted consistent with an acute hemarthrosis in the setting the femoral neck fracture. The superior capsular leaflet was left in place in the inferior capsular flap was excised. The Cobra retractors were placed intracapsularly. On inspection there was a femoral neck fracture extending across the transcervical femoral neck with extension to the medial calcar several millimeters proximal to the lesser trochanter. We then made a femoral neck osteotomy according to preoperative and intraoperative templating and confirmed the level of the osteotomy using fluoroscopic imaging. The femoral head was removed, passed off to the back table, and sized. The superior capsular flap was excised. Retractors were placed circumferentially exposing the acetabulum. We then circumferentially debrided the acetabulum free of labrum and osteophytes. The pulvinar was removed to fully visualize the cotyloid fossa. We then sequentially reamed to achieve peripheral fit and excellent bleeding subchondral bone. The socket was thoroughly irrigated. The acetabular component was impacted into the appropriate position using fluoroscopy to guide version, inclination, and depth of insertion taking care to have a comparable image of the AP pelvis to the standing image taken in the office. An excellent press-fit was achieved and final position was confirmed using fluoroscopy. The press fit was augmented with bony cancellus dome screws. The liner was then impacted into the socket. Attention was then turned to the femur. The remnant dorsal lateral capsule was excised. The short external rotators were visible and protected. A bone hook was used to confirm appropriate translation of the trochanter away from the acetabulum. The leg was then extended and adducted and the bone hook was used to elevate the femur for broaching. On inspection of the patient's proximal femur, they appeared to have poor bone quality so I elected to proceed with cemented fixation of the femoral component. A box osteotome and blunt tipped canal sound was then utilized to gain access to the femoral canal. We then sequ entially broached the femur in appropriate anteversion until torsional stability was achieved and the implant was felt to have reached the appropriate size to allow trialing. The neck cut was brought flush to the trial broach with a calcar planar. A trial neck and head were then placed onto the broach and the hip was atraumatically reduced under direct visualization. External rotation to 90 was performed to assess stability. Fluoroscopy was brought in. An AP and lateral fluoroscopic image of the proximal femur was obtained to assess position and fill of the trial broach. An AP of the pelvis was then obtained and matched to the preoperative image taken. A bi-ischial bar was then placed and measurements were taken to assess changes in length and offset. The hip was then carefully dislocated, the proximal femur was exposed, and the trial implants were removed. The proximal femur was then prepared for cementing. The canal was thoroughly irrigated with pulsatile lavage to remove blood and marrow contents. A cement restrictor was placed to a depth just distal to the tip of the final implant. Epinephrine-soaked gauze was then packed into the proximal femur. 2 bags of cement were then mixed using a centrifuge and placed into a cement gun. Anesthesia was notified that cementing was about to commence to make sure the patient was appropriately ventilated and hydrated. Once the cement had reached appropriate consistency, the cement gun was used to fill the canal in a retrograde fashion starting at the restrictor. Cement was then pressurized into the canal with a blue tipped band salvager. The stem was then carefully introduced into the cement taking care to guide the implant into appropriate version. The stem was held in position until the cement had fully set. All extra cement was removed while the cement was hardening. Extra cement was placed in the calcar defect under the collar of the stem. The trunnion was cleansed and the final head was tapped into place to engage the Jeff taper. The acetabulum was irrigated and visualized to be free of debris. The hip was carefully reduced. Stability was checked clinically with external rotation to 90 and there was no evidence of instability. Final fluoroscopic images were taken. The wound was then thoroughly irrigated and soaked with a dilute Betadine rinse for 3 minutes. 3 L of sterile saline was irrigated through the wound using pulsatile lavage. Local anesthetic cocktail was injected into the soft tissues around the surgical field. The wound was then closed in layers. A sterile dressing was placed over the surgical incision. The drapes were taken down and the patient was carefully transferred off of the [place] table. Following removal of the boots the leg lengths felt acceptable. The patient was then taken to recovery room having tolerated the procedure well. Deo Leon PA-C was required as a skilled commissary assistant due to the complexity of surgery for patient positioning, draping, exposure, retraction, closure of wound, and application of dressing. PLAN: The patient can weight-bear as tolerated on the operative extremity. 2 doses of postoperative antibiotics. DVT prophylaxis with aspirin 81 mg twice a day based on preoperative risk stratification. Physical therapy for gait training. I would like the patient wait 6 weeks after his total hip replacement before having his prostate procedure. His incisional need to be fully healed and he should also be given suppressive antibiotics following surgery.
[2024-04-10] MEDS: IV FLUID CONTINUATION 1,000 ML IV ONE (17:41)
[2024-04-10] MEDS: ROPIVACAINE/EPI/CLONIDINE/KET 50 ML SYRINGE MISCELLANE ONE (18:02)
--- NOTE | 2024-04-10 18:48 | P.PN ---
Subjective Progress Note Date: 04/10/24 Patient is evaluated today on the medical floor assumed care today from primary provider. Patient is pending right hip hemiarthroplasty today with Dr Martinez. He has been medically cleared with no absolute contraindication. He has no acute complaints currently. Was evaluated by urology as he is scheduled to undergo surgery on April 22. He had a prostate MRI this admission. Review of Systems Constitutional: Denied any fatigue denied any fever. Cardio vascular: denied any chest pain, palpitations Gastrointestinal: denied any nausea, vomiting, diarrhea Pulmonary: Denied any shortness of breath cough Neurologic denied any new focal deficits All inpatient medications were reviewed and appropriate changes in these medications as dictated in the interval history and assessment and plan. PHYSICAL EXAMINATION: GENERAL: The patient is alert and oriented x3, not in any acute distress. Well developed, well nourished. HEENT: Pupils are round and equally reacting to light. EOMI. No scleral icterus. No conjunctival pallor. Normocephalic, atraumatic. No pharyngeal erythema. No thyromegaly. CARDIOVASCULAR: S1 and S2 present. No murmurs, rubs, or gallops. PULMONARY: Chest is clear to auscultation, no wheezing or crackles. ABDOMEN: Soft, nontender, nondistended, normoactive bowel sounds. No palpable organomegaly. MUSCULOSKELETAL: No joint swelling or deformity. EXTREMITIES: No cyanosis, clubbing, or pedal edema. NEUROLOGICAL: Gross neurological examination did not reveal any focal deficits. SKIN: No rashes. Assessment and plan _Right hip fracture will need to go for ORIF for hemiarthroplasty: cleared by primary with no absolute contraindication for surgery, continue on cardiac mo nitoring. Pending surgery later today. Anticoagulation per orthopedics. _A-fib: Pulse rate has been well-controlled I believe patient has an appointment to see one of the cabin crew in [facility] [place] and he was remain on Cardizem CD1 20 mg twice a day without any anticoagulation which will resume Cardizem at this point and anticoagulation after surgery. _History of asthma: With no flareup continue his Symbicort will add albuterol nebulizer on as-needed basis. _Prostate cancer: Was planning before surgery 22 April, which will be delayed for the time being as of now he has Quintanilla catheter and we have to watch for any urinary retention after surgery and try to remove the catheter is much as possible and if needed to have urology see him after surgery consult will be done. Patient had prostate MRI done. _Mild anxiety attacks: Has been on alprazolam which will be resumed on as-needed basis. _GI prophylaxis: Patient be on Pepcid 20 mg twice a day. _Anticoagulation: per orthopedics CODE STATUS: Full code. The impression and plan of care has been dictated by Georgette Gutierrez, Nurse Practitioner as directed. Dr. Yoseph MD I have performed a history and physical examination and medical decision making of this patient, discussed the same with the dictator, and agree with the dictators assessment and plan as written, documented as a scribe. Based on total visit time, I have performed more than 50% of this visit. Objective - Vital Signs Vital signs: Vital Signs Temp 98.1 F 04/10/24 17:57 Pulse 90 04/10/24 17:57 Resp 16 04/10/24 17:57 BP 120/68 04/10/24 17:57 Pulse Ox 95 04/10/24 17:57 FiO2 Intake & Output 04/09/24 04/10/24 04/10/24 18:59 06:59 18:59 Intake Total 1151 Output Total 750 575 200 Balance -750 -575 951 Intake: IV 1151 Output: Urine 750 575 Estimated Blood Loss 200 Other: Voiding Method Indwelling Catheter Indwelling Catheter Indwelling Catheter - Labs CBC & Chem 7: 04/08/24 17:35 04/08/24 17:35 Assessment and Plan Time with Patient: Less than 30
[2024-04-10] MEDS: ONDANSETRON 4 MG/2 ML VIAL IVP PRN (19:01)
[2024-04-10] MEDS: SENNOSIDES-DOCUSATE SODIUM 1 EACH TAB PO SCH (21:06)
[2024-04-10 23:34] LABS: HCT 43.9 % (39.6-50.0); HGB 13.9 g/dL (13.0-17.0); MCH 29.9 pg (27.0-32.0); MCHC 31.7 g/dL (32.0-37.0); MCV 94.4 FL (80.0-97.0); Mean Platelet Volume 11.2 FL (9.5-12.2); NRBC Per 100 WBC 0 X 10*3/uL (0.00-0.01); Platelet Count 133 X 10*3/uL (140-440); RBC 4.65 X 10*6/uL (4.40-5.60); WBC 14.95 X 10*3/uL (4.50-10.00)
--- NOTE | 2024-04-11 01:24 | FL ---
EXAMINATION TYPE: FL guidance operating room, XR Hip Complete RT DATE OF EXAM: 04/10/2024 CLINICAL HISTORY: Right hip pain and osteoarthritis. TECHNIQUE: Fluoroscopy. COMPARISON: None. FINDINGS: Fluoroscopic guidance was provided during right hip replacement procedure performed by Dr. Chaidez. A total of 86.9 seconds of fluoroscopic time was utilized during the procedure and 9 spot i mages was acquired. Images acquired show placement of metallic hardware from total right hip arthropl asty that appears satisfactory in position on the intraoperative images obtained. IMPRESSION: As Above. TOTAL DAP = 1.8987 Gy x cm2.
[2024-04-11 05:55] LABS: Acanthocytes 2+; Basophils # (M) 0.15 X 10*3/uL (0.00-0.10); Eosinophils # (M) 0.15 X 10*3/uL (0.04-0.35); Monocytes # (M) 1.05 X 10*3/uL (0.20-1.00); Neutrophils # (M) 13.01 X 10*3/uL (1.80-7.70); Neutrophils % (M) 87 %
[2024-04-11] MEDS: HYDROcodone/APAP 10-325MG 1 EACH TAB PO PRN (06:25)
--- NOTE | 2024-04-11 09:11 | P.PN ---
Subjective Progress Note Date: 04/11/24 Underwent right-sided hip replacement yesterday, MRI of the prostate showed disease confined to the prostate, no evidence of pelvic lymphadenopathy or extraprostatic extension Objective - Vital Signs Vital signs: Vital Signs Temp 99.2 F 04/11/24 08:00 Pulse 101 H 04/11/24 08:00 Resp 16 04/11/24 08:00 BP 103/56 04/11/24 08:00 Pulse Ox 92 L 04/11/24 08:00 FiO2 Intake & Output 04/10/24 04/11/24 04/11/24 18:59 06:59 18:59 Intake Total 1151 Output Total 200 250 500 Balance 951 -250 -500 Intake: IV 1151 Output: Urine 250 500 Coude 500 Estimated Blood Loss 200 Other: Voiding Method Indwelling Catheter Indwelling Catheter - Constitutional General appearance: Present: no acute distress - Gastrointestinal General gastrointestinal: Present: soft. Absent: distended, tenderness - Psychiatric Psychiatric: Present: A&O x's 3 - Labs CBC & Chem 7: 04/10/24 18:19 04/08/24 17:35 Labs: Abnormal Lab Results - Last 24 Hours (Table) 04/10/24 Range/Units 18:19 WBC 14.95 H (4.50-10.00) X 10*3/uL MCHC 31.7 L (32.0-37.0) g/dL Plt Count 133 L (140-440) X 10*3/uL Neutrophils # (Manual) 13.01 H (1.80-7.70) X 10*3/uL Lymphocytes # (Manual) 0.60 L (0.90-5.00) X 10*3/uL Monocytes # (Manual) 1.05 H (0.20-1.00) X 10*3/uL Basophils # (Manual) 0.15 H (0.00-0.10) X 10*3/uL Acanthocytes (Spur) 2+ A Assessment and Plan Assessment: 68-year-old male with history of [place] 7 4+3) prostate cancer currently scheduled to undergo robotic radical prostatectomy on April 22. Prostate MRI showed no evidence of metastatic disease, disease is localized to the prostate. I discussed with him and Dr. Mims we will need to wait a minimum of 4 to 6 weeks from his hip replacement. Prior to proceeding with prostatectomy. Discussed with him he is at high risk of getting DVT post prostatectomy. Discussed alternative with him of radiation therapy, which he declined and his preference is to proceed with surgery at this point. -We will cancel his surgery for April 22 and move his surgery to 4 to 6 weeks post his hip replacement
--- NOTE | 2024-04-11 09:24 | P.PN ---
Subjective Patient is doing well this morning. The pain in his hip is improved since surgery and has only mild discomfort. He has been up walking several times and is currently sitting in a chair. He denies chest pain or shortness of breath. Objective - Vital Signs Vital signs: Vital Signs Temp 99.2 F 04/11/24 08:00 Pulse 101 H 04/11/24 08:00 Resp 16 04/11/24 08:00 BP 103/56 04/11/24 08:00 Pulse Ox 92 L 04/11/24 08:00 FiO2 Intake & Output 04/10/24 04/11/24 04/11/24 18:59 06:59 18:59 Intake Total 1151 Output Total 200 250 500 Balance 951 -250 -500 Intake: IV 1151 Output: Urine 250 500 Coude 500 Estimated Blood Loss 200 Other: Voiding Method Indwelling Catheter Indwelling Catheter - Exam The patient is resting comfortably in a chair. He is alert and able to answer questions. On inspection of the right hip the dressing is intact.. There is mild swelling. There is no drainage or strike through. Femoral nerve function is intact. The patient is able to actively plantarflex and dorsiflex his ankle and his toes. - Labs CBC & Chem 7: 04/10/24 18:19 04/08/24 17:35 Labs: Abnormal Lab Results - Last 24 Hours (Table) 04/10/24 Range/Units 18:19 WBC 14.95 H (4.50-10.00) X 10*3/uL MCHC 31.7 L (32.0-37.0) g/dL Plt Count 133 L (140-440) X 10*3/uL Neutrophils # (Manual) 13.01 H (1.80-7.70) X 10*3/uL Lymphocytes # (Manual) 0.60 L (0.90-5.00) X 10*3/uL Monocytes # (Manual) 1.05 H (0.20-1.00) X 10*3/uL Basophils # (Manual) 0.15 H (0.00-0.10) X 10*3/uL Acanthocytes (Spur) 2+ A Assessment and Plan Assessment: Postoperative day #1 status post right total hip replacement for displaced femoral neck fracture Nail-patella syndrome Nonmetastatic prostate cancer Plan: 1. Weight bear as tolerated on the operative extremity, up with assistance and a walker 2. DVT prophylaxis with Eliquis 2.5 mg BID x 4 weeks given his hip fracture, total hip replacement and history of cancer 3. 2 doses of post operative Ancef followed by doxycycline until his incision heals 4. Leave surgical dressing in place 5. Internal medicine for love-operative medical management 6. Discussed prostate cancer and treatment with both the patient and urology this AM. Would like to wait at least 6 weeks until prostate surgery. 7. Physical therapy for gait training and mobilization 8. Dispo: Will likely need d/c to rehab or SNF.
[2024-04-11] MEDS ORDERED: BENZOCAINE/MENTHOL LOZENG 1 EACH LOZENGE MUCOUS MEM PRN (11:37)
[2024-04-11] MEDS: TAMSULOSIN 0.4 MG CAP.ER.24H PO SCH (17:32)
--- NOTE | 2024-04-11 20:30 | P.PN ---
Subjective Progress Note Date: 04/11/24 Patient is evaluated today on the medical floor assumed care today from primary provider. Patient is pending right hip hemiarthroplasty today with Dr Martinez. He has been medically cleared with no absolute contraindication. He has no acute complaints currently. Was evaluated by urology as he is scheduled to undergo surgery on April 22. He had a prostate MRI this admission. 04/11/2024 Patient is evaluated today sitting up in the chair. Postoperative day #1 right hip hemiarthroplasty. He is having urinary retention postoperatively. Indwelling catheter has been inserted. Flomax was started. Review of Systems Constitutional: Denied any fatigue denied any fever. Cardio vascular: denied any chest pain, palpitations Gastrointestinal: denied any nausea, vomiting, diarrhea Pulmonary: Denied any shortness of breath cough Neurologic denied any new focal deficits All inpatient medications were reviewed and appropriate changes in these medications as dictated in the interval history and assessment and plan. PHYSICAL EXAMINATION: GENERAL: The patient is alert and oriented x3, not in any acute distress. Well developed, well nourished. HEENT: Pupils are round and equally reacting to light. EOMI. No scleral icterus. No conjunctival pallor. Normocephalic, atraumatic. No pharyngeal erythema. No thyromegaly. CARDIOVASCULAR: S1 and S2 present. No murmurs, rubs, or gallops. PULMONARY: Chest is clear to auscultation, no wheezing or crackles. ABDOMEN: Soft, nontender, nondistended, normoactive bowel sounds. No palpable organomegaly. MUSCULOSKELETAL: No joint swelling or deformity. EXTREMITIES: No cyanosis, clubbing, or pedal edema. Post surgical dressing in place. NEUROLOGICAL: Gross neurological examination did not reveal any focal deficits. SKIN: No rashes. Assessment and plan _Right hip fracture will need to go for ORIF for hemiarthroplasty: cleared by primary with no absolute contraindication for surgery, continue on cardiac monitoring. POD # 1 right hip hemiarthroplasty -Postoperative urinary retention with indwelling catheter inserted and patient has been started on flomax. _A-fib: Pulse rate has been well-controlled I believe patient has an appointment to see one of the real estate inspector in [facility] in [place] and he was remain on Cardizem CD1 20 mg twice a day without any anticoagulation which will resume Cardizem at this point and anticoagulation after surgery. _History of asthma: With no flareup continue his Symbicort will add albuterol nebulizer on as-needed basis. _Prostate cancer: Was planning before surgery 22 April, which will be delayed for the time being as of now he has Quintanilla catheter and we have to watch for any urinary retention after surgery and try to remove the catheter is much as possible and if needed to have urology see him after surgery consult will be done. Patient had prostate MRI done. _Mild anxiety attacks: Has been on alprazolam which will be resumed on as-needed basis. _GI prophylaxis: Patient be on Pepcid 20 mg twice a day. _Anticoagulation: per orthopedics started on eliquis 2.5 mg BID orthopedics recommending 4 weeks of anticoagulation CODE STATUS: Full code. The impression and plan of care has been dictated by Georgette Gutierrez, Nurse Practitioner as directed. Dr. Yoseph MD I have performed a history and physical examination and medical decision making of this patient, discussed the same with the dictator, and agree with the dictators assessment and plan as written, documented as a scribe. Based on total visit time, I have performed more than 50% of this visit. Objective - Vital Signs Vital signs: Vital Signs Temp 98.5 F 04/11/24 17:59 Pulse 109 H 04/11/24 17:59 Resp 16 04/11/24 17:59 BP 110/72 04/11/24 17:59 Pulse Ox 93 L 04/11/24 17:59 FiO2 Intake & Output 04/11/24 04/11/24 04/12/24 06:59 18:59 06:59 Intake Total 237 Output Total 250 900 Balance -250 -663 Intake: Oral 237 Output: Urine 250 900 Coude 500 Other: Voiding Method Indwelling Catheter - Labs CBC & Chem 7: 04/10/24 18:19 04/08/24 17:35 Labs: Abnormal Lab Results - Last 24 Hours (Table) 04/10/24 Range/Units 18:19 WBC 14.95 H (4.50-10.00) X 10*3/uL MCHC 31.7 L (32.0-37.0) g/dL Plt Count 133 L (140-440) X 10*3/uL Neutrophils # (Manual) 13.01 H (1.80-7.70) X 10*3/uL Lymphocytes # (Manual) 0.60 L (0.90-5.00) X 10*3/uL Monocytes # (Manual) 1.05 H (0.20-1.00) X 10*3/uL Basophils # (Manual) 0.15 H (0.00-0.10) X 10*3/uL Acanthocytes (Spur) 2+ A Assessment and Plan Time with Patient: Less than 30
[2024-04-11] MEDS: APIXABAN 2.5 MG TABLET PO SCH (21:39)
[2024-04-12] MEDS: DILTIAZEM 125 MG in SODIUM CHLORIDE 0.9% 100 ML IV SCH (00:24)
[2024-04-12] MEDS: MAGNESIUM HYDROXIDE 2,400 MG/30 ML CUP PO PRN (06:34)
[2024-04-12] MEDS: APIXABAN 5 MG TAB PO SCH (08:22)
[2024-04-12] MEDS: DILTIAZEM CD 120 MG CAP.ER.24H PO SCH (08:22)
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
[2024-04-12] MEDS ORDERED: METOPROLOL SUCCINATE (ER) 50 MG TAB.ER.24H PO SCH (09:00)
[2024-04-12] MEDS ORDERED: METOPROLOL SUCCINATE (ER) 25 MG TAB.ER.24H PO SCH ×2 (09:00)
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
[2024-04-12 10:33] LABS: BUN/Creat Ratio 15.36 Ratio (12.00-20.00); Blood Urea Nitrogen 16.9 mg/dL (9.0-27.0); Carbon Dioxide 21.6 mmol/L (21.6-31.8); Chloride 101 mmol/L (96-109); Glucose 172 mg/dL (70-110); Magnesium 1.8 mg/dL (1.5-2.4); Potassium 4.2 mmol/L (3.5-5.5); Sodium 134 mmol/L (135-145)
[2024-04-12 10:34] LABS: Calcium 8.3 mg/dL (8.7-10.3)
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
--- NOTE | 2024-04-12 15:32 | P.PN ---
Subjective Patient doing well from an orthopaedic standpoint. Pain is controlled with PO pain meds. He is presently in a fib and is having issues with urinary retention. Objective - Vital Signs Vital signs: Vital Signs Temp 98.3 F 04/12/24 12:00 Pulse 92 04/12/24 14:00 Resp 18 04/12/24 12:00 BP 112/72 04/12/24 12:00 Pulse Ox 95 04/12/24 12:00 FiO2 Intake & Output 04/11/24 04/12/24 04/12/24 18:59 06:59 18:59 Intake Total 237 120 Output Total 900 550 Balance -663 -550 120 Intake: Oral 237 120 Output: Urine 900 550 [place] 500 Other: Voiding Method Indwelling Catheter Indwelling Catheter # Voids 0 # Bowel Movements 0 - Exam Resting comfortably in bed. Right LE: dressing intact. Thigh with mild swelling. Femoral nerve function intact. Moves foot/ankle up and down. - Labs CBC & Chem 7: 04/10/24 18:19 04/12/24 07:06 Labs: Abnormal Lab Results - Last 24 Hours (Table) 04/12/24 Range/Units 07:06 Sodium 134 L (135-145) mmol/L Glucose 172 H (70-110) mg/dL Calcium 8.3 L (8.7-10.3) mg/dL Assessment and Plan Assessment: POD#2 s/p right DA ANSELMO for femoral neck fracture Nail-Patella Syndrome Prostate cancer Atrial fibrillation Urinary retention Plan: Continue WBAT with assistance on his right hip. Leave surgical dressing in place. Appreciate IM and cardiology assistance with medical management. Patient will likely need d/c to SNF when medically stable.
[2024-04-12 17:53] LABS: Basophils % (A) 0 %; Eosinophils # (A) 0.1 k/uL (0-0.7); Eosinophils % (A) 1 %; HCT 36.6 % (39.0-53.0); Lymphocytes # (A) 0.6 k/uL (1.0-4.8); Lymphocytes % (A) 6 %; MCH 30.7 pg (25.0-35.0); MCHC 33.4 g/dL (31.0-37.0); MCV 92.1 fL (80.0-100.0); Monocytes % (A) 10 %; Neutrophils # (A) 8.1 k/uL (1.3-7.7); Neutrophils % (A) 80 %; Platelet Count 152 k/uL (150-450); RBC 3.97 m/uL (4.30-5.90); RDW 12.8 % (11.5-15.5); WBC 10.1 k/uL (3.8-10.6)
[2024-04-12 17:56] LABS: HGB 12.2 gm/dL (13.0-17.5)
--- NOTE | 2024-04-12 20:32 | CA ---
Transthoracic Echo Report Name: Grzegorz Zhong Age: 68 Gender: M : 1955 Exam Date: 04/12/2024 15:49 Exam Location: [facility] Ht (in): 69 Wt (lb): 140 Ordering Physician: Margarette Nance Attending/Referring Phys: [id number], Lee Ann Director [place] [employer] Liliam De Jesus RDCS Procedure CPT: Indications: LV Function, afib Cardiac Hx: Technical Quality: Fair Contrast 1: Total Dose (mL): Contrast 2: Total Dose (mL): MEASUREMENTS (Male / Female) Normal Values 2D ECHO LV Diastolic Diameter PLAX 3.2 cm 4.2 - 5.9 / 3.9 - 5.3 cm LV Systolic Diameter PLAX 1.8 cm IVS Diastolic Thickness 1.0 cm 0.6 - 1.0 / 0.6 - 0.9 cm LVPW Diastolic Thickness 1.1 cm 0.6 - 1.0 / 0.6 - 0.9 cm LV Relative Wall Thickness 0.6 RV Internal Dim ED PLAX 2.6 cm LA Volume 54.4 cm??? 18 - 58 / 22 - 52 cm??? LA Volume Index 31.0 cm???/m??? 16 - 28 cm???/m??? M-MODE Aortic Root Diameter MM 3.3 cm LA Systolic Diameter MM 3.1 cm LA Ao Ratio MM 0.9 AV Cusp Separation MM 1.0 cm DOPPLER AV Peak Velocity 139.3 cm/s AV Peak Gradient 7.8 mmHg AV Mean Velocity 98.7 cm/s AV Mean Gradient 4.3 mmHg AV Velocity Time Integral 21.0 cm LVOT Peak Velocity 122.2 cm/s LVOT Peak Gradient 6.0 mmHg LVOT Velocity Time Integral 24.3 cm MV Area PHT 3.5 cm??? Mitral E Point Velocity 87.2 cm/s Mitral A Point Velocity 109.9 cm/s Mitral E to A Ratio 0.8 MV Deceleration Time 219.4 ms MV E' Velocity 9.4 cm/s Mitral E to MV E' Ratio 9.3 TR Peak Velocity 211.1 cm/s TR Peak Gradient 17.8 mmHg Right Ventricular Systolic Press 21.8 mmHg FINDINGS Left Ventricle Left ventricular cavity size normal. Left ventricular wall thickness normal. Normal left ventricular systolic function with no obvious regional wall motion abnormalities. Left ventricular ejection fraction is estimated at 55-60 %. Grade 1 diastolic dysfunction. Right Ventricle Normal right ventricular size and function. Right Atrium Normal right atrial size. Left Atrium Mildly increased left atrial volume. Mitral Valve Structurally normal mitral valve. No evidence for mitral valve prolapse. No mitral stenosis. Trace to mild mitral regurgitation. Aortic Valve Trileaflet aortic valve. No aortic valve stenosis or regurgitation. Tricuspid Valve Structurally normal tricuspid valve. Mild tricuspid regurgitation. Pulmonic Valve Structurally normal pulmonic valve. Pericardium No pericardial effusion. Aorta Normal size aortic root and proximal ascending aorta. CONCLUSIONS Normal LV size and systolic function Previewed by: Dr. Gabriel Rolon MD (Electronically Signed) Final Date: 12 April 2024 20:31
[2024-04-13] MEDS: HYDROcodone/APAP 5-325MG 1 EACH TAB PO PRN (01:56)
[2024-04-13 07:45] LABS: HCT 31.3 % (39.0-53.0); HGB 10.9 gm/dL (13.0-17.5); MCH 31.6 pg (25.0-35.0); MCHC 34.7 g/dL (31.0-37.0); MCV 91.1 fL (80.0-100.0); Mean Platelet Volume 9.4; Platelet Count 147 k/uL (150-450); RBC 3.44 m/uL (4.30-5.90); RDW 13.1 % (11.5-15.5); WBC 9.6 k/uL (3.8-10.6)
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
[2024-04-13 08:05] LABS: ALT 12 U/L (4-49); AST 30 U/L (17-59); African American GFR (CKD) >90 (>60 ml/min/1.73 sqM); Albumin 2.6 g/dL (3.5-5.0); Alkaline Phosphatase 56 U/L (38-126); Anion Gap 3 mmol/L; Blood Urea Nitrogen 18 mg/dL (9-20); Carbon Dioxide 24 mmol/L (22-30); Chloride 105 mmol/L (98-107); Glucose 112 mg/dL (74-99); Non-African American GFR(CKD) 88 (>60 ml/min/1.73 sqM); Potassium 4.1 mmol/L (3.5-5.1); Sodium 132 mmol/L (137-145); Total Bilirubin 1.3 mg/dL (0.2-1.3); Total Protein 4.8 g/dL (6.3-8.2)
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
--- NOTE | 2024-04-13 13:17 | P.DS ---
Providers Date of admission: 04/08/24 17:29 Attending physician: aJck Martinez Consults: 04/08/24 21:01 Consult Physician Routine Consulting Provider: Bennett Augustin Consult Reason/Comments: medical clearence Do you want consulting provider notified?: Yes, Notify in am 04/09/24 08:38 Consult Physician Urgent Consulting Provider: David Conn Consult Reason/Comments: Discuss prostate surgery Do you want consulting provider notified?: Yes 04/11/24 22:53 Consult Physician Urgent Consulting Provider: Gonzalez Rosales Consult Reason/Comments: Afib HR 160 Do you want consulting provider notified?: Yes Primary care physician: Bennett Augustin [facility] Course: History significant for metastatic prostate cancer nail-patella syndrome who was admitted with a hip fracture he was taken to the operating room on Friday for right total hip replacement, uncomplicated surgery, was transferred to the orthopedic floor, received couple doses of antibiotics and started on Eliquis for DVT prophylaxis, was seen by internal medicine, went into a-fib, was seen by cardiology, had urinary retention, after voiding will be transferring to intermediate facility. Patient Condition at Discharge: Good Plan - Discharge Summary Discharge Rx Participant: Yes New Discharge Prescriptions: New Docusate [Colace] 100 mg PO BID #60 capsule HYDROcodone/APAP 5-325MG [Kingwood 5-325] 1 - 2 tab PO Q6HR PRN #32 tab PRN Reason: Pain Apixaban [Eliquis] 5 mg PO BID tab Omeprazole 40 mg PO DAILY #30 cap Doxycycline Monohydrate [Monodox] 100 mg PO BID #28 cap Tamsulosin [Flomax] 0.4 mg PO PC-SUPPER cap Sennosides-Docusate Sodium [Senokot-S] 2 each PO HS tab Continue polyethylene glycoL 3350 [Miralax] 17 gm PO W/SUPPER Fluticasone Nasal [place] [Flonase Nasal [place]] 2 spray EA NOSTRIL DAILY PRN PRN Reason: Allergy Symptoms Budesonide/Formoterol Fumarate [Symbicort 160-4.5 Mcg Inhaler] 1 puff INHALATION RT-BID PRN PRN Reason: Shortness Of Breath Cyanocobalamin [Vitamin B-12] 500 mcg PO DAILY@0700 Multivit-Min/FA/Lycopen/Lutein [Centrum Silver Tablet] 1 tab PO DAILY@0700 dilTIAZem HCL [Cardizem CD] 120 mg PO BID@0700,1900 Magnesium 250 mg PO DAILY@0700 Prostate Supplement Otc 1 dose PO DAILY@0700 Changed ALPRAZolam [Xanax] 0.25 tab PO BID #30 tab Discontinued ALPRAZolam [Xanax] 0.25 mg PO DAILY PRN PRN Reason: Anxiety Discharge Medication List Budesonide/Formoterol Fumarate [Symbicort 160-4.5 Mcg Inhaler] 1 puff INHALATION RT-BID PRN 04/08/24 [History] Cyanocobalamin [Vitamin B-12] 500 mcg PO DAILY@0700 04/08/24 [History] Fluticasone Nasal [place] [Flonase Nasal [place]] 2 spray EA NOSTRIL DAILY PRN 04/08/24 [History] Magnesium 250 mg PO DAILY@0704/08/24 [History] Multivit-Min/FA/Lycopen/Lutein [Centrum Silver Tablet] 1 tab PO DAILY@0700 04/08/24 [History] Prostate Supplement Otc 1 dose PO DAILY@0700 04/08/24 [History] dilTIAZem HCL [Cardizem CD] 120 mg PO BID@0700,1900 04/08/24 [History] polyethylene glycoL 3350 [Miralax] 17 gm PO W/SUPPER 04/08/24 [History] Docusate [Colace] 100 mg PO BID #60 capsule 04/11/24 [Rx] Doxycycline Monohydrate [Monodox] 100 mg PO BID #28 cap 04/11/24 [Rx] HYDROcodone/APAP 5-325MG [Kingwood 5-325] 1 - 2 tab PO Q6HR PRN #32 tab 04/11/24 [Rx] Omeprazole 40 mg PO DAILY #30 cap 04/11/24 [Rx] ALPRAZolam [Xanax] 0.25 tab PO BID #30 tab 04/13/24 [Rx] Apixaban [Eliquis] 5 mg PO BID tab 04/13/24 [Rx] Sennosides-Docusate Sodium [Senokot-S] 2 each PO HS tab 04/13/24 [Rx] Tamsulosin [Flomax] 0.4 mg PO PC-SUPPER cap 04/13/24 [Rx] Follow up Appointment(s)/Referral(s): Aiden Menjivar MD [Medical Doctor] - 1 Week Bennett Augustin MD [Primary Care Provider] - 1-2 days Jack Martinez MD [Medical Doctor] - 2 Weeks Activity/Diet/Wound Care/Special Instructions: 1. Weight-bear as tolerated on your operative extremity unless instructed otherwise. Use a walker or other assistive device to ambulate. 2. Leave surgical dressing in place. If your dressing becomes saturated with blood, there is drainage, or the dressing becomes loose please contact the office. 3. It is okay to shower with your surgical dressing, but do not submerge in water (no hot tubs, bath's, swimming etc.) 4. Make sure to take her blood clot prevention medication as prescribed (aspirin, Eliquis, Xarelto, and Plavix are commonly prescribed medications for blood clot prevention) 5. While taking [place] or Percocet for pain make sure you're taking a stool softener (Colace) and drink lots of water. 6. Keep all follow-up appointments as scheduled. You will usually be seen in 1 -2 weeks following surgery. 7. Please contact the office with any questions or concerns [phone] Discharge Disposition: TRANSFER TO SNF/ECF
[2024-04-13 13:23] VITALS: BMI 22.4
[2024-04-13 16:51] LABS: Glucose,Whole Blood 139 mg/dL (70-110)
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
[2024-04-13 20:32] LABS: Glucose,Whole Blood 153 mg/dL (70-110)
--- NOTE | 2024-04-14 06:13 | P.PN ---
Progress Note - Text post operative urinary retention is an expected outcome of the surgical procedure/anesthesia AND related to the patient's co-morbid condition of prostate cancer and not a complication of the procedure
[2024-04-14 06:14] LABS: Glucose,Whole Blood 143 mg/dL (70-110)
[2024-04-14 12:31] LABS: Glucose,Whole Blood 178 mg/dL (70-110)
[2024-04-14 12:54] VITALS: RESP 16; TEMP 98.5
[2024-04-14 12:57] VITALS: PULSE 114
[2024-04-14 17:53] VITALS: BP 110/66
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
== END 2024-04-14 19:23 | DRG 522 ==
LOC: EC 15:52 → 4SSUR 17:29 → 3SCARD 04-12 00:23
PROVIDERS: ADMIT Orthopaedic Surgery; ATTEND Orthopaedic Surgery
PROC: 3E0T3BZ Introduction of Anesthetic Agent into Peripheral Nerves and Plexi, Percutaneous Approach (ICD-10-PCS; principal; 2024-04-10 14:00)
PROC: 0SR90J9 Replacement of Right Hip Joint with Synthetic Substitute, Cemented, Open Approach (ICD-10-PCS; principal; 2024-04-10 14:00)
DX: S72.031A Displaced midcervical fracture of right femur, initial encounter for closed fracture (principal); Q87.2 Congenital malformation syndromes predominantly involving limbs; C61 Malignant neoplasm of prostate; F41.1 Generalized anxiety disorder; J45.909 Unspecified asthma, uncomplicated; I48.0 Paroxysmal atrial fibrillation; Z79.01 Long term (current) use of anticoagulants; V18.4XXA Pedal cycle driver injured in noncollision transport accident in traffic accident, initial encounter; Y93.35 Activity, hang gliding; R33.9 Retention of urine, unspecified; D69.6 Thrombocytopenia, unspecified; Z85.46 Personal history of malignant neoplasm of prostate; D72.829 Elevated white blood cell count, unspecified; Y93.55 Activity, bike riding; Z79.51 Long term (current) use of inhaled steroids; Z79.899 Other long term (current) drug therapy; Z82.49 Family history of ischemic heart disease and other diseases of the circulatory system; Z88.1 Allergy status to other antibiotic agents; Z87.19 Personal history of other diseases of the digestive system
CPT/HCPCS: 36415; 71045; 72197; 73502; 80048; 80053; 81001; 83735; 84443; 85025; 85027; 85610; 85730; 88305; 88311; 90471; 90715; 93005; 93306; 96361; 96374; 99285

== ENCOUNTER 2024-05-03 17:21 | Emergency (ER) | payer MEDICARE ==
--- NOTE | 2024-05-03 17:56 | ED ---
Male Urogenital HPI - General Chief complaint: Recheck/Abnormal Lab/Rx Stated complaint: Cath Issues Time Seen by Provider: 05/03/24 17:55 Source: patient, RN notes reviewed, old records reviewed Mode of arrival: ambulatory Limitations: no limitations - History of Present Illness Initial comments: This is a 68-year-old male for blood in the urine blood in the Quintanilla catheter which was placed for urinary retention he has had the Quintanilla catheter for 1 day no blood thinners no abdominal pain concern for blood no fevers no other complaints MD Complaint: other (Hematuria) -: hour(s) Location: penis Radiation: none Severity: moderate Severity scale (1-10): 4 Consistency: constant Improves with: none Worsens with: none Reports: denies other symptoms - Related Data Home Medications Medication Instructions Recorded Confirmed Budesonide/Formoterol Fumarate 1 puff INHALATION RT-BID PRN 04/08/24 04/08/24 [Symbicort 160-4.5 Mcg Inhaler] Cyanocobalamin [Vitamin B-12] 500 mcg PO DAILY@0700 04/08/24 04/08/24 Fluticasone Nasal [place] [Flonase 2 spray EA NOSTRIL DAILY PRN 04/08/24 04/08/24 Nasal [place]] Magnesium 250 mg PO DAILY@0700 04/08/24 04/08/24 Multivit-Min/FA/Lycopen/Lutein 1 tab PO DAILY@0700 04/08/24 04/08/24 [Centrum Silver Tablet] Prostate Supplement Otc 1 dose PO DAILY@0700 04/08/24 04/08/24 dilTIAZem HCL [Cardizem CD] 120 mg PO BID@0700,1900 04/08/24 04/08/24 polyethylene glycoL 3350 [Miralax] 17 gm PO W/SUPPER 04/08/24 04/08/24 Previous Rx's Medication Instructions Recorded Docusate [Colace] 100 mg PO BID #60 capsule 04/11/24 Doxycycline Monohydrate [Monodox] 100 mg PO BID #28 cap 04/11/24 HYDROcodone/APAP 5-325MG [[place] 1 - 2 tab PO Q6HR PRN #32 tab 04/11/24 5-325] Omeprazole 40 mg PO DAILY #30 cap 04/11/24 ALPRAZolam [Xanax] 0.25 tab PO BID #30 tab 04/13/24 Apixaban [Eliquis] 5 mg PO BID tab 04/13/24 Sennosides-Docusate Sodium 2 each PO HS tab 04/13/24 [Senokot-S] Tamsulosin [Flomax] 0.4 mg PO PC-SUPPER cap 04/13/24 Sulfamethox-Tmp 800-160Mg [Bactrim 1 each PO Q12HR #20 tab 05/07/24 DS 800-160 mg] Allergies Allergy/AdvReac Type Severity Reaction Status Date / Time erythromycin base AdvReac Severe Abdominal Verified 05/07/24 11:59 Pain, gi upset Review of Systems ROS Statement: Those systems with pertinent positive or pertinent negative responses have been documented in the HPI. ROS Other: All systems not noted in ROS Statement are negative. 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 He is now 96 yrs old. Mother Family Medical History: Dementia Additional Family Medical History / Comment(s): Mother is 95 yrs old. General Exam Limitations: no limitations General appearance: alert, in no apparent distress, anxious Head exam: Present: atraumatic, normocephalic, normal inspection Eye exam: Present: normal appearance, PERRL, EOMI. Absent: scleral icterus, conjunctival injection, periorbital swelling ENT exam: Present: normal exam, mucous membranes moist Neck exam: Present: normal inspection. Absent: tenderness, meningismus, lymphadenopathy Respiratory exam: Present: normal lung sounds bilaterally. Absent: respiratory distress, wheezes, rales, rhonchi, stridor Cardiovascular Exam: Present: normal rhythm, tachycardia, normal heart sounds. Absent: systolic murmur, diastolic murmur, rubs, gallop, clicks GI/Abdominal exam: Present: soft, normal bowel sounds. Absent: distended, tenderness, guarding, rebound, rigid Extremities exam: Present: normal inspection, full ROM, normal capillary refill. Absent: tenderness, pedal edema, joint swelling, calf tenderness Back exam: Present: normal inspection Neurological exam: Present: alert, oriented X3, CN II-XII intact Psychiatric exam: Present: normal affect, normal mood Skin exam: Present: warm, dry, intact, normal color. Absent: rash Course Vital Signs 05/03/24 17:48 Temperature 98 F Pulse Rate 115 H Respiratory 20 Rate Blood Pressure 136/59 O2 Sat by Pulse 99 Oximetry - Reevaluation(s) Reevaluation #1: Medical records reviewed Reevaluation #2: Symptoms improved Reevaluation #3: Patient informed of results questions answered Reevaluation #4: Was pt. sent in by a medical professional or institution (, PA, LAYDOWN MACHINE OPERATOR, urgent care, hospital, or shelter...) When possible be specific @ -no Did you speak to anyone other than the patient for history (EMS, parent, family, police, friend...)? What history was obtained from this source @ -no Did you review nursing and triage notes (agree or disagree)? Why? @ -agree Are old charts reviewed (outside hosp., previous admission, EMS record, old EKG, old radiological studies, urgent care reports/EKG's, shelter records)? Report findings @ -yes Differential Diagnosis (chest pain, altered mental status, abdominal pain women, abdominal pain men, vaginal bleeding, weakness, fever, dyspnea, syncope, headache, dizziness, GI bleed, back pain, seizure, CVA, palpatations, mental health, musculoskeletal)? @ -prior EKG interpreted by me (3pts min.). @ -no X-rays interpreted by me (1pt min.). @ -no CT interpreted by me (1pt min.). @ -no U/S interpreted by me (1pt. min.). @ -no What testing was considered but not performed or refused? (CT, X-rays, U/S, labs)? Why? @ -none What meds were considered but not given or refused? Why? @ -none Did you discuss the management of the patient with other professionals (professionals i.e. , PA, LAYDOWN MACHINE OPERATOR, lab, RT, psych nurse, social service coordinator, model and mold maker, teacher, border patrol officer, upper caser)? Give summary @ -no Was smoking cessation discussed for >3mins.? @ -no Was critical care preformed (if so, how long)? @ -no Were there social determinants of health that impacted care today? How? (Homelessness, low income, unemployed, alcoholism, drug addiction, transportation, low edu. Level, literacy, decrease access to med. care, residential, rehab)? @ -none Was there de-escalation of care discussed even if they declined (Discuss DNR or withdrawal of care, Hospice)? DNR status @ -no What co-morbidities impacted this encounter? (DM, HTN, Smoking, COPD, CAD, Cancer, CVA, ARF, Chemo, Hep., AIDS, mental health diagnosis, sleep apnea, morbid obesity)? @ -none Was patient admitted / discharged? Hospital course, mention meds given and route, prescriptions, significant lab abnormalities, going to OR and other pertinent info. @ - 68 male to ER for evaluation of difficulty with urination concern for Quintanilla catheter issue, patient has no significant findings here in the ER and can be discharged home Discharge Undiagnosed new problem with uncertain prognosis? @ -no Drug Therapy requiring intensive monitoring for toxicity (Heparin, Nitro, Insulin, Cardizem)? @ -no Were any procedures done? @ -no Diagnosis/symptom? @ -Urinary retention and hematuria Acute, or Chronic, or Acute on Chronic? @ -Acute Uncomplicated (without systemic symptoms) or Complicated (systemic symptoms)? @ -Complicated Side effects of treatment? @ -no Exacerbation, Progression, or Severe Exacerbation? @ -exacerbation Poses a threat to life or bodily function? How? (Chest pain, USA, MD, pneumonia, PE, COPD, DKA, ARF, appy, cholecystitis, CVA, Diverticulitis, Homicidal, Suicidal, threat to staff... and all critical care pts) @ -no Medical Decision Making - Medical Decision Making 68 male to ER for evaluation of difficulty with urination concern for Quintanilla catheter issue, patient has no significant findings here in the ER and can be discharged home - Lab Data Lab Results 05/03/24 Range/Units 18:03 Urine Color Red Urine Appearance Cloudy (Clear) Urine pH 7.0 (5.0-8.0) Ur Specific [place] 1.017 (1.001-1.035) Urine Protein 1+ H (Negative) Urine Glucose (UA) Negative (Negative) Urine Ketones Negative (Negative) Urine Blood Large H (Negative) Urine Nitrite Negative (Negative) Urine Bilirubin Negative (Negative) Urine Urobilinogen <2.0 (<2.0) mg/dL Ur Leukocyte Esterase Large H (Negative) Urine RBC >182 H (0-5) /hpf Urine WBC 23 H (0-5) /hpf Disposition Clinical Impression: Hematuria Disposition: HOME SELF-CARE Condition: Good Instructions (If sedation given, give patient instructions): Hematuria (ED) Is patient prescribed a controlled substance at d/c from ED?: No Referrals: Bennett Augustin MD [Primary Care Provider] - 1-2 days Time of Disposition: 20:10
[2024-05-03 18:55] VITALS: BP 136/59; PULSE 115; RESP 20; TEMP 98
[2024-05-03 18:59] LABS: Appearance,Urine Cloudy (Clear); Bilirubin,Urine Negative (Negative); Blood,Urine Large (Negative); Color,Urine Red; Glucose,Urine (UA) Negative (Negative); Ketones,Urine Negative (Negative); Leukocyte Esterase,Urine Large (Negative); Nitrite,Urine Negative (Negative); Protein,Urine 1+ (Negative); RBC,Urine >182 /hpf (0-5); Urobilinogen,Urine <2.0 mg/dL (<2.0); WBC,Urine 23 /hpf (0-5)
[2024-05-03 19:00] LABS: Specific Gravity,Urine 1.017 (1.001-1.035)
[2024-05-03] MEDS ORDERED: OXYBUTYNIN XL 5 MG TAB.ER.24 PO STA ×2 (20:12)
== END 2024-05-03 20:32 | disposition home or self-care (01) ==
LOC: EC 17:21
DX: R33.9 Retention of urine, unspecified (principal); R31.9 Hematuria, unspecified; Z88.1 Allergy status to other antibiotic agents
CPT/HCPCS: 51798; 81001; 87086; 99284

== ENCOUNTER 2024-05-07 11:43 | Emergency (ER) | payer MEDICARE ==
--- NOTE | 2024-05-07 12:04 | ED ---
General Adult HPI - General Chief complaint: Fever Stated complaint: Fever Time Seen by Provider: 05/07/24 11:55 Source: patient, EMS, RN notes reviewed, old records reviewed Mode of arrival: EMS Limitations: no limitations - History of Present Illness Initial comments: This is a 68-year-old male who presents to the emergency department stating at about 915 this morning he started having the chills and he noticed his heart rate was racing since he has a history of atrial fibrillation he decided to come to the emergency department. Patient states approximately 3 weeks ago he had a right hip replacement and since then he had a catheter in place. Patient denies any abdominal pain patient has any back pain. Patient has any recent fever chills or cough. Patient denies any chest pain. Patient denies any new or worsening right hip pain. Patient states the hip is a little sore but otherwise feels fine - Related Data Home Medications Medication Instructions Recorded Confirmed Budesonide/Formoterol Fumarate 1 puff INHALATION RT-BID PRN 04/08/24 04/08/24 [Symbicort 160-4.5 Mcg Inhaler] Cyanocobalamin [Vitamin B-12] 500 mcg PO DAILY@0700 04/08/24 04/08/24 Fluticasone Nasal [place] [Flonase 2 spray EA NOSTRIL DAILY PRN 04/08/24 04/08/24 Nasal [place]] Magnesium 250 mg PO DAILY@0700 04/08/24 04/08/24 Multivit-Min/FA/Lycopen/Lutein 1 tab PO DAILY@0700 04/08/24 04/08/24 [Centrum Silver Tablet] Prostate Supplement Otc 1 dose PO DAILY@0700 04/08/24 04/08/24 dilTIAZem HCL [Cardizem CD] 120 mg PO BID@0700,1900 04/08/24 04/08/24 polyethylene glycoL 3350 [Miralax] 17 gm PO W/SUPPER 04/08/24 04/08/24 Previous Rx's Medication Instructions Recorded Docusate [Colace] 100 mg PO BID #60 capsule 04/11/24 Doxycycline Monohydrate [Monodox] 100 mg PO BID #28 cap 04/11/24 HYDROcodone/APAP 5-325MG [[place] 1 - 2 tab PO Q6HR PRN #32 tab 04/11/24 5-325] Omeprazole 40 mg PO DAILY #30 cap 04/11/24 ALPRAZolam [Xanax] 0.25 tab PO BID #30 tab 04/13/24 Apixaban [Eliquis] 5 mg PO BID tab 04/13/24 Sennosides-Docusate Sodium 2 each PO HS tab 04/13/24 [Senokot-S] Tamsulosin [Flomax] 0.4 mg PO PC-SUPPER cap 04/13/24 Sulfamethox-Tmp 800-160Mg [Bactrim 1 each PO Q12HR #20 tab 05/07/24 DS 800-160 mg] Allergies Allergy/AdvReac Type Severity Reaction Status Date / Time erythromycin base AdvReac Severe Abdominal Verified 05/07/24 11:59 Pain, gi upset Review of Systems ROS Statement: Those systems with pertinent positive or pertinent negative responses have been documented in the HPI. ROS Other: All systems not noted in ROS Statement are negative. 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 He is now 96 yrs old. Mother Family Medical History: Dementia Additional Family Medical History / Comment(s): Mother is 95 yrs old. General Exam - General Exam Comments Initial Comments: GENERAL: Patient is well-developed and well-nourished. Patient is nontoxic and well- hydrated and is in mild distress. ENT: Neck is soft and supple. No significant lymphadenopathy is noted. Oropharynx is clear. Moist mucous membranes. Neck has full range of motion without eliciting any pain. EYES: The sclera were anicteric and conjunctiva were pink and moist. Extraocular movements were intact and pupils were equal round and reactive to light. Eyelids were unremarkable. PULMONARY: Unlabored respirations. Good breath sounds bilaterally. No audible rales rhonchi or wheezing was noted. CARDIOVASCULAR: Patient is tachycardic at about 120 beats a minute ABDOMEN: Soft and nontender with normal bowel sounds. SKIN: Skin is clear with no lesions or rashes and otherwise unremarkable. NEUROLOGIC: Patient is alert and oriented x3. Cranial nerves II through XII are grossly intact. Motor and sensory are also intact. Normal speech, volume and content. Symmetrical smile. MUSCULOSKELETAL: Normal extremities with adequate strength and full range of motion. Patient has clubfeet LYMPHATICS: No significant lymphadenopathy is noted PSYCHIATRIC: Normal psychiatric evaluation. Limitations: no limitations Course Vital Signs 05/07/24 11:47 Temperature 102.2 F H Pulse Rate 130 H Respiratory 18 Rate Blood Pressure 151/83 O2 Sat by Pulse 100 Oximetry Medical Decision Making - Medical Decision Making EKG is interpreted by myself but EKG shows a sinus tachycardia at 129 bpm NJ interval 116 QRS of 78 QT interval 334 QTc is 410. Patient's EKG shows no ST segment ovation or depression. Was pt. sent in by a medical professional or institution (LATOYA Hernandez, DIRECTOR RETIREMENT, urgent care, hospital, or detention...) When possible be specific @ -No Did you speak to anyone other than the patient for history (EMS, parent, family, police, friend...)? What history was obtained from this source @ -No Did you review nursing and triage notes (agree or disagree)? Why? @ -I reviewed and agree with nursing and triage notes Were old charts reviewed (outside hosp., previous admission, EMS record, old EK G, old radiological studies, urgent care reports/EKG's, detention records)? Report findings @ -No old charts were reviewed Differential Diagnosis? @ -Differential Fever: Pneumonia, viral URI, endocarditis, myocarditis, pericarditis, otitis, sinusitis, peritonsillar Abscess, retropharyngeal Abscess, epiglottitis, peritonitis, appendicitis, Sherri cystitis, diverticulitis, hepatitis, colitis, UTI, PID, TOA, pyelonephritis, prostatitis, epididymitis, meningitis, encephalitis, pulmonary embolism, CVA, thyroid storm, pancreatitis, adrenal crisis, cavernous sinus thrombosis, this is not meant to be an all-inclusive list. EKG interpreted by me (3pts min.). @ -As above X-rays interpreted by me (1pt min.). @ -None done CT interpreted by me (1pt min.). @ -None done U/S interpreted by me (1pt. min.). @ -None done What testing was considered but not performed or refused? (CT, X-rays, U/S, labs )? Why? @ -None What meds were considered but not given or refused? Why? @ -None Did you discuss the management of the patient with other professionals (professionals i.e. , PA, DIRECTOR RETIREMENT, lab, RT, psych nurse, bilingual social worker, benefits officer, teacher, chief environmental commitment officer, case management associate)? Give summary @ -No Was smoking cessation discussed for >3mins.? @ -No Was critical care preformed (if so, how long)? @ -No Were there social determinants of health that impacted care today? How? (Homelessness, low income, unemployed, alcoholism, drug addiction, transportation, low edu. Level, literacy, decrease access to med. care, custodial, rehab)? @ -No Was there de-escalation of care discussed even if they declined (Discuss DNR or withdrawal of care, Hospice)? DNR status @ -No What co-morbidities impacted this encounter? (DM, HTN, Smoking, COPD, CAD, Cancer, CVA, ARF, Chemo, Hep., AIDS, mental health diagnosis, sleep apnea, morbid obesity)? @ -None Was patient admitted / discharged? Hospital course, mention meds given and route, prescriptions, significant lab abnormalities, going to OR and other pertinent info. @ -Patient urinary tract infection patient was given 2 g of Rocephin. Patient had the Quintanilla removed and was able to urinate on his own and he was feeling good enough to go home. Undiagnosed new problem with uncertain prognosis? @ -No Drug Therapy requiring intensive monitoring for toxicity (Heparin, Nitro, Insulin, Cardizem)? @ -No Were any procedures done? @ -No Diagnosis/symptom? @ -Urinary tract infection Acute, or Chronic, or Acute on Chronic? @ -Acute Uncomplicated (without systemic symptoms) or Complicated (systemic symptoms)? @ -Complicated Side effects of treatment? @ -No Exacerbation, Progression, or Severe Exacerbation? @ -No Poses a threat to life or bodily function? How? (Chest pain, USA, NV, pneumonia, PE, COPD, DKA, ARF, appy, cholecystitis, CVA, Diverticulitis, Homicidal, Suicidal, threat to staff... and all critical care pts) @ -No - Lab Data Result diagrams: 05/07/24 11:59 05/07/24 11:59 Lab Results 05/07/24 05/07/24 05/07/24 Range/Units 11:59 11:59 11:59 WBC 14.2 H (3.8-10.6) k/uL RBC 4.28 L (4.30-5.90) m/uL Hgb 12.3 L (13.0-17.5) gm/dL Hct 38.7 L (39.0-53.0) % MCV 90.4 (80.0-100.0) fL MCH 28.7 (25.0-35.0) pg MCHC 31.8 (31.0-37.0) g/dL RDW 14.0 (11.5-15.5) % Plt Count 331 D (150-450) k/uL MPV 8.1 Neutrophils % 93 % Lymphocytes % 3 % Monocytes % 2 % Eosinophils % 1 % Basophils % 0 % Neutrophils # 13.1 H (1.3-7.7) k/uL Lymphocytes # 0.4 L (1.0-4.8) k/uL Monocytes # 0.3 (0-1.0) k/uL Eosinophils # 0.2 (0-0.7) k/uL Basophils # 0.1 (0-0.2) k/uL PT 12.2 (10.0-12.5) sec INR 1.1 (<1.2) APTT 23.1 (22.0-30.0) sec Sodium (137-145) mmol/L Potassium (3.5-5.1) mmol/L Chloride (98-107) mmol/L Carbon Dioxide (22-30) mmol/L Anion Gap mmol/L BUN (9-20) mg/dL Creatinine (0.66-1.25) mg/dL Est GFR (CKD-EPI)AfAm (>60 ml/min/1.73 sqM) Est GFR (CKD-EPI)NonAf (>60 ml/min/1.73 sqM) Glucose (74-99) mg/dL Lactic Ac Sepsis Rflx Plasma Lactic Acid [place] (0.7-2.0) mmol/L Calcium (8.4-10.2) mg/dL Total Bilirubin (0.2-1.3) mg/dL AST (17-59) U/L ALT (4-49) U/L Alkaline Phosphatase (38-126) U/L Total Protein (6.3-8.2) g/dL Albumin (3.5-5.0) g/dL Urine Color Yellow Urine Appearance Cloudy (Clear) Urine pH 8.0 (5.0-8.0) Ur Specific [place] 1.012 (1.001-1.035) Urine Protein 1+ H (Negative) Urine Glucose (UA) Negative (Negative) Urine Ketones Negative (Negative) Urine Blood Large H (Negative) Urine Nitrite Positive (Negative) Urine Bilirubin Negative (Negative) Urine Urobilinogen <2.0 (<2.0) mg/dL Ur Leukocyte Esterase Large H (Negative) Urine RBC >182 H (0-5) /hpf Urine WBC 53 H (0-5) /hpf Urine WBC Clumps Few H (None) /hpf Ur Squamous Epith Cells 1 (0-4) /hpf Urine Bacteria Many H (None) /hpf Urine Mucus Few H (None) /hpf Influenza Type A (PCR) (Not Detectd) Influenza Type B (PCR) (Not Detectd) RSV (PCR) (Not Detectd) SARS-CoV-2 (PCR) (Not Detectd) 05/07/24 05/07/24 05/07/24 Range/Units 11:59 11:59 12:00 WBC (3.8-10.6) k/uL RBC (4.30-5.90) m/uL Hgb (13.0-17.5) gm/dL Hct (39.0-53.0) % MCV (80.0-100.0) fL MCH (25.0-35.0) pg MCHC (31.0-37.0) g/dL RDW (11.5-15.5) % Plt Count (150-450) k/uL MPV Neutrophils % % Lymphocytes % % Monocytes % % Eosinophils % % Basophils % % Neutrophils # (1.3-7.7) k/uL Lymphocytes # (1.0-4.8) k/uL Monocytes # (0-1.0) k/uL Eosinophils # (0-0.7) k/uL Basophils # (0-0.2) k/uL PT (10.0-12.5) sec INR (<1.2) APTT (22.0-30.0) sec Sodium 137 (137-145) mmol/L Potassium 3.6 (3.5-5.1) mmol/L Chloride 108 H (98-107) mmol/L Carbon Dioxide 20 L (22-30) mmol/L Anion Gap 9 mmol/L BUN 13 (9-20) mg/dL Creatinine 1.03 (0.66-1.25) mg/dL Est GFR (CKD-EPI)AfAm 85 (>60 ml/min/1.73 sqM) Est GFR (CKD-EPI)NonAf 74 (>60 ml/min/1.73 sqM) Glucose 120 H (74-99) mg/dL Lactic Ac Sepsis Rflx Plasma Lactic Acid [place] 2.1 H* (0.7-2.0) mmol/L Calcium 9.5 (8.4-10.2) mg/dL Total Bilirubin 1.1 (0.2-1.3) mg/dL AST 22 (17-59) U/L ALT 15 (4-49) U/L Alkaline Phosphatase 109 (38-126) U/L Total Protein 6.2 L (6.3-8.2) g/dL Albumin 3.7 (3.5-5.0) g/dL Urine Color Urine Appearance (Clear) Urine pH (5.0-8.0) Ur Specific [place] (1.001-1.035) Urine Protein (Negative) Urine Glucose (UA) (Negative) Urine Ketones (Negative) Urine Blood (Negative) Urine Nitrite (Negative) Urine Bilirubin (Negative) Urine Urobilinogen (<2.0) mg/dL Ur Leukocyte Esterase (Negative) Urine RBC (0-5) /hpf Urine WBC (0-5) /hpf Urine WBC Clumps (None) /hpf Ur Squamous Epith Cells (0-4) /hpf Urine Bacteria (None) /hpf Urine Mucus (None) /hpf Influenza Type A (PCR) Not Detected (Not Detectd) Influenza Type B (PCR) Not Detected (Not Detectd) RSV (PCR) Not Detected (Not Detectd) SARS-CoV-2 (PCR) Not Detected (Not Detectd) 05/07/24 Range/Units 13:02 WBC (3.8-10.6) k/uL RBC (4.30-5.90) m/uL Hgb (13.0-17.5) gm/dL Hct (39.0-53.0) % MCV (80.0-100.0) fL MCH (25.0-35.0) pg MCHC (31.0-37.0) g/dL RDW (11.5-15.5) % Plt Count (150-450) k/uL MPV Neutrophils % % Lymphocytes % % Monocytes % % Eosinophils % % Basophils % % Neutrophils # (1.3-7.7) k/uL Lymphocytes # (1.0-4.8) k/uL Monocytes # (0-1.0) k/uL Eosinophils # (0-0.7) k/uL Basophils # (0-0.2) k/uL PT (10.0-12.5) sec INR (<1.2) APTT (22.0-30.0) sec Sodium (137-145) mmol/L Potassium (3.5-5.1) mmol/L Chloride (98-107) mmol/L Carbon Dioxide (22-30) mmol/L Anion Gap mmol/L BUN (9-20) mg/dL Creatinine (0.66-1.25) mg/dL Est GFR (CKD-EPI)AfAm (>60 ml/min/1.73 sqM) Est GFR (CKD-EPI)NonAf (>60 ml/min/1.73 sqM) Glucose (74-99) mg/dL Lactic Ac Sepsis Rflx Y Plasma Lactic Acid [place] (0.7-2.0) mmol/L Calcium (8.4-10.2) mg/dL Total Bilirubin (0.2-1.3) mg/dL AST (17-59) U/L ALT (4-49) U/L Alkaline Phosphatase (38-126) U/L Total Protein (6.3-8.2) g/dL Albumin (3.5-5.0) g/dL Urine Color Urine Appearance (Clear) Urine pH (5.0-8.0) Ur Specific [place] (1.001-1.035) Urine Protein (Negative) Urine Glucose (UA) (Negative) Urine Ketones (Negative) Urine Blood (Negative) Urine Nitrite (Negative) Urine Bilirubin (Negative) Urine Urobilinogen (<2.0) mg/dL Ur Leukocyte Esterase (Negative) Urine RBC (0-5) /hpf Urine WBC (0-5) /hpf Urine WBC Clumps (None) /hpf Ur Squamous Epith Cells (0-4) /hpf Urine Bacteria (None) /hpf Urine Mucus (None) /hpf Influenza Type A (PCR) (Not Detectd) Influenza Type B (PCR) (Not Detectd) RSV (PCR) (Not Detectd) SARS-CoV-2 (PCR) (Not Detectd) Disposition Clinical Impression: Urinary tract infection Disposition: HOME SELF-CARE Condition: Good Prescriptions: Sulfamethox-Tmp 800-160Mg [Bactrim DS 800-160 mg] 1 each PO Q12HR #20 tab Is patient prescribed a controlled substance at d/c from ED?: No Referrals: Bennett Augustin MD [Primary Care Provider] - 1-2 days Time of Disposition: 15:18
[2024-05-07] MEDS: cefTRIAXone IN SWFI 1,000 MG/10 ML SYRINGE IVP STA ×2 (12:14→12:15)
[2024-05-07] MEDS: IBUPROFEN 600 MG TAB PO STA (12:15)
[2024-05-07] MEDS: ACETAMINOPHEN TAB 500 MG TAB PO STA (12:15)
[2024-05-07] MEDS: SODIUM CHLORIDE 0.9% 500 ML 500 ML IV SCH (12:20)
[2024-05-07 12:22] VITALS: RESP 18; TEMP 102.2
[2024-05-07 12:41] LABS: INR 1.1 (<1.2); Partial Thromboplastin Time 23.1 sec (22.0-30.0); Prothrombin Time 12.2 sec (10.0-12.5)
[2024-05-07 12:45] LABS: ALT 15 U/L (4-49); AST 22 U/L (17-59); African American GFR (CKD) 85 (>60 ml/min/1.73 sqM); Albumin 3.7 g/dL (3.5-5.0); Alkaline Phosphatase 109 U/L (38-126); Anion Gap 9 mmol/L; Appearance,Urine Cloudy (Clear); Bacteria,Urine Many /hpf; Bilirubin,Urine Negative (Negative); Blood Urea Nitrogen 13 mg/dL (9-20); Blood,Urine Large (Negative); Calcium 9.5 mg/dL (8.4-10.2); Carbon Dioxide 20 mmol/L (22-30); Chloride 108 mmol/L (98-107); Color,Urine Yellow; Glucose 120 mg/dL (74-99); Glucose,Urine (UA) Negative (Negative); Ketones,Urine Negative (Negative); Leukocyte Esterase,Urine Large (Negative); Mucus,Urine Few /hpf; Nitrite,Urine Positive (Negative); Non-African American GFR(CKD) 74 (>60 ml/min/1.73 sqM); Potassium 3.6 mmol/L (3.5-5.1); Protein,Urine 1+ (Negative); RBC,Urine >182 /hpf (0-5); Sodium 137 mmol/L (137-145); Specific Gravity,Urine 1.012 (1.001-1.035); Squamous Epithelial Cell,Urine 1 /hpf (0-4); Total Bilirubin 1.1 mg/dL (0.2-1.3); Total Protein 6.2 g/dL (6.3-8.2); Urobilinogen,Urine <2.0 mg/dL (<2.0); WBC,Urine 53 /hpf (0-5)
[2024-05-07 12:48] LABS: Basophils # (A) 0.1 k/uL (0-0.2); Basophils % (A) 0 %; Eosinophils # (A) 0.2 k/uL (0-0.7); Eosinophils % (A) 1 %; HCT 38.7 % (39.0-53.0); HGB 12.3 gm/dL (13.0-17.5); Lymphocytes # (A) 0.4 k/uL (1.0-4.8); Lymphocytes % (A) 3 %; MCH 28.7 pg (25.0-35.0); MCHC 31.8 g/dL (31.0-37.0); MCV 90.4 fL (80.0-100.0); Mean Platelet Volume 8.1; Monocytes # (A) 0.3 k/uL (0-1.0); Monocytes % (A) 2 %; Neutrophils # (A) 13.1 k/uL (1.3-7.7); Neutrophils % (A) 93 %; RBC 4.28 m/uL (4.30-5.90); WBC 14.2 k/uL (3.8-10.6)
[2024-05-07 12:49] LABS: Platelet Count 331 k/uL (150-450)
--- NOTE | 2024-05-07 12:59 | XR ---
EXAMINATION TYPE: XR chest 2V DATE OF EXAM: 05/07/2024 12:42 PM CLINICAL INDICATION:Male, 68 years old with history of Fever; [facility] COMPARISON: Chest radiographs from 04/08/2024. TECHNIQUE: XR chest 2V Frontal view of the chest. FINDINGS: Lungs/Pleura: There is no evidence of pleural effusion, focal consolidation, or pneumothorax. Pulmonary vascularity: Unremarkable. Heart/mediastinum: Cardiomediastinal silhouette is unremarkable. Musculoskeletal: No acute osseous pathology. IMPRESSION: No acute cardiopulmonary disease/process.
[2024-05-07 16:01] VITALS: BP 106/59; PULSE 81
== END 2024-05-07 16:07 | disposition home or self-care (01) ==
LOC: EC 11:43
DX: N39.0 Urinary tract infection, site not specified (principal); B96.20 Unspecified Escherichia coli [E. coli] as the cause of diseases classified elsewhere; Z88.1 Allergy status to other antibiotic agents
CPT/HCPCS: 36415; 93005; 80053; 83605; 85025; 85610; 85730; 81001; 87040; 87077; 87186; 87636; 71046; 99284; 96374; 96361; J0696

== ENCOUNTER → 2024-05-26 | Outpatient (CLI) | payer MEDICARE ==
[2024-05-26 18:41] LABS: Basophils # (A) 0.08 X 10*3/uL (0.00-0.10); Basophils % (A) 1.9 %; Eosinophils # (A) 0.08 X 10*3/uL (0.04-0.35); Eosinophils % (A) 1.9 %; HGB 12.2 g/dL (13.0-17.0); Lymphocytes # (A) 0.88 X 10*3/uL (0.90-5.00); Lymphocytes % (A) 20.8 %; MCH 28.2 pg (27.0-32.0); MCHC 32.1 g/dL (32.0-37.0); Mean Platelet Volume 10.1 FL (9.5-12.2); Monocytes # (A) 0.65 X 10*3/uL (0.20-1.00); Monocytes % (A) 15.3 %; NRBC Per 100 WBC 0 X 10*3/uL (0.00-0.01); Neutrophils # (A) 2.54 X 10*3/uL (1.80-7.70); Neutrophils % (A) 59.9 %; Platelet Count 337 X 10*3/uL (140-440); RBC 4.32 X 10*6/uL (4.40-5.60); RDW 13.5 % (11.5-14.5); WBC 4.24 X 10*3/uL (4.50-10.00)
[2024-05-26 19:09] LABS: Appearance,Urine Clear (Clear); Bilirubin,Urine Negative (Negative); Blood,Urine Small (Negative); Color,Urine Yellow (Yellow); Ketones,Urine Negative (Negative); Nitrite,Urine Negative (Negative); Urobilinogen,Urine 0.2 E.U./DL
[2024-05-26 19:17] LABS: Bacteria,Urine None Seen (None Seen)
[2024-05-26 19:20] LABS: BUN/Creat Ratio 13.64 Ratio (12.00-20.00); Calcium 10.3 mg/dL (8.7-10.3); Carbon Dioxide 22.9 mmol/L (21.6-31.8); Chloride 103 mmol/L (96-109); Glucose 112 mg/dL (70-110); Potassium 4.1 mmol/L (3.5-5.5); Sodium 139 mmol/L (135-145)
== END | disposition home or self-care (01) ==
LOC: LABWHC1 12:45
PROVIDERS: ATTEND Urology
DX: Z01.812 Encounter for preprocedural laboratory examination (principal); C61 Malignant neoplasm of prostate
CPT/HCPCS: 36415; 80048; 81001; 85025; 86850; 86900; 86901; 87086

== ENCOUNTER 2024-06-03 05:43 | Observation (INO) | payer MEDICARE ==
[2024-06-01 10:27] VITALS: BMI 21.4
--- NOTE | 2024-06-01 11:25 | P.HPIHPCON ---
History of Present Illness H&P Date: 06/01/24 Chief Complaint: Prostate cancer This is a 68-year-old male with history of [place] 7 prostate cancer, option of robotic radical prostatectomy versus radiation therapy. Risk and benefit of each approach were discussed. Patient is not interested in radiation therapy and would like to proceed with prostatectomy, aware the risk which includes but not limited to bleeding, infection, urinary incontinence, erectile dysfunction. Discussed also risk of injury to nearby organs. Discussed also risk of cancer recurrence and potential of needing additional treatment. Discussed also need for postoperative surveillance. Discussed with him given his previous history of ex lap and bowel resection potential of bowel injury and if there is significant adhesion I may not be able to perform the procedure. He understood all the risk and agreed to proceed Consent for Procedure: I have explained the operation/procedure to the patient, including the risks, benefits, side effects, alternative therapies (including not receiving the proposed treatment or service), the likelihood of the patient achieving his/her goals, and potential recuperation problems for the procedure/sedation/analgesia, as well as any blood products, if indicated. I also explained to the patient the risks, benefits and side effects of the alternatives, as well as the risks related to not receiving the proposed procedure, care, treatment, or services. Past Medical History Past Medical History: Atrial Fibrillation, Asthma, Cancer, Eye Disorder, Hearing Disorder / Deafness, Prostate Disorder, Sleep Apnea/CPAP/BIPAP Additional Past Medical History / Comment(s): severe post nasal drip, HX OF AFIB , HX OF sleep apnea NOT USING CPAP, current prostate cancer-no chemo no radiation. 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 Rt hip replaced April 2024. Past Anesthesia/Blood Transfusion Reactions: Motion Sickness, Postoperative Nausea & Vomiting (PONV) Additional Past Anesthesia/Blood Transfusion Reaction / Comment(s): With surgeries as a child, pt received ether and had vomiting post op Smoking Status: Never smoker - Past Family History Father Family Medical History: Hypertension Additional Family Medical History / Comment(s): Father had a AR at the age of 95 yrs. He is now 96 yrs old. Mother Family Medical History: Dementia Additional Family Medical History / Comment(s): Mother is 95 yrs old. Medications and Allergies Home Medications Medication Instructions Recorded Confirmed Type Budesonide/Formoterol Fumarate 1 puff INHALATION RT-BID PRN 04/08/24 06/01/24 History [Symbicort 160-4.5 Mcg Inhaler] Fluticasone Nasal [place] [Flonase 2 spray EA NOSTRIL DAILY PRN 04/08/24 06/01/24 History Nasal [place]] Magnesium 250 mg PO DAILY@0700 04/08/24 06/01/24 History Multivit-Min/FA/Lycopen/Lutein 1 tab PO DAILY@0700 04/08/24 06/01/24 History [Centrum Silver Tablet] dilTIAZem HCL [Cardizem CD] 120 mg PO BID@0700,1900 04/08/24 06/01/24 History Apixaban [Eliquis] 5 mg PO BID tab 04/13/24 06/01/24 Rx Tamsulosin [Flomax] 0.4 mg PO PC-SUPPER cap 04/13/24 06/01/24 Rx ALPRAZolam [Xanax] 0.125 tab PO HS 06/01/24 06/01/24 History Miralax(Dose Unknown) 1 dose PO HS 06/01/24 History Allergies Allergy/AdvReac Type Severity Reaction Status Date / Time erythromycin base AdvReac Severe Abdominal Verified 06/01/24 10:04 Pain, gi upset metronidazole [From Flagyl] AdvReac Terrible Verified 06/01/24 10:04 GI symptoms/ night sweats/Halucinations Surgical - Exam - General no distress, no pain - Eyes normal ocular movement, no pale - ENT normal nares, normal mucosa - Respiratory normal expansion, normal respiratory effort - Abdomen Abdomen: soft, non tender - Psychiatric oriented to time, oriented to person, oriented to place Assessment and Plan Assessment: OR for robotic radical prostatectomy with bilateral pelvic lymph node dissection
[2024-06-03] MEDS: IV FLUID CONTINUATION 1,000 ML IV ONE ×2 (06:15→06:16)
[2024-06-03] MEDS: MIDAZOLAM 2 MG/2 ML VIAL IV ONE (06:57)
[2024-06-03] MEDS ORDERED: HYDROmorphone 0.5 MG/0.5 ML SYRINGE IVP PRN (07:00)
[2024-06-03] MEDS: DEXAMETHASONE SOD PHOSPHATE 4 MG/ML 1 ML VIAL IV ONE (07:10)
[2024-06-03] MEDS: ONDANSETRON 4 MG/2 ML VIAL IVP ONE (07:10)
[2024-06-03] MEDS: LACTATED RINGERS 1,000 ML IV SCH (07:10)
[2024-06-03] MEDS: HEPARIN SODIUM,PORCINE 5,000 UNIT/ML 1 ML VIAL SQ PRN (07:13)
[2024-06-03] MEDS ORDERED: ROCURONIUM 10 MG/ML (5 ML VIAL) IV ONE (07:24)
[2024-06-03] MEDS ORDERED: DEXAMETHASONE SOD PHOSPHATE 4 MG/ML 1 ML VIAL ONE (07:24)
[2024-06-03] MEDS ORDERED: fentaNYL (PF) 50 MCG/ML 2 ML AMP ONE (07:24)
[2024-06-03] MEDS ORDERED: NEOSTIGMINE 1 MG/ML 10 ML VIAL ONE (07:24)
[2024-06-03] MEDS ORDERED: ROPIVACAINE 5 MG/ML 30 ML VIAL ONE (07:24)
[2024-06-03] MEDS ORDERED: HYDROmorphone (PF) 1 MG/ML ONE (07:24)
[2024-06-03] MEDS ORDERED: LIDOCAINE 1% INJ 10MG/ML (20 ML MDV) ONE (07:24)
[2024-06-03] MEDS ORDERED: SODIUM CHLORIDE 0.9% (PF) 10 ML VIAL ONE (07:24)
[2024-06-03] MEDS ORDERED: GLYCOPYRROLATE 0.2 MG/ML 2 ML VIAL ONE (07:24)
[2024-06-03] MEDS ORDERED: PROPOFOL 10 MG/ML 20 ML VIAL IV ONE (07:24)
[2024-06-03] MEDS ORDERED: PHENYLEPHRINE 10 MG/ML VIAL ONE (07:24)
[2024-06-03] MEDS: BUPIVACAINE (PF) 0.25% 30 ML VIAL SQ ONE (07:29)
[2024-06-03] MEDS ORDERED: FLUTICASONE NASAL 50MCG/SPRAY 16GM BTL EA NOSTRIL PRN (07:46)
[2024-06-03] MEDS ORDERED: HYDROmorphone 1 MG/ML 1 ML SYRINGE IVP PRN (07:47)
[2024-06-03] MEDS: LACTATED RINGERS 1,000 ML IV ONE (11:25)
--- NOTE | 2024-06-03 12:08 | P.ANPRN ---
Procedure Note - Anesthesia - Nerve Block Performed Bilateral Erector Spinae Single Time Out Performed: Yes Date of Procedure: 06/03/24 Procedure Start Time: 06:56 Procedure Stop Time: 07:03 Location of Patient: PreOp Indication: Acute Post-Operative Pain, Requested by Surgeon Sedation Type: Sedate with meaningful contact maintained Preparation: Sterile Prep Position: Prone Needle Types: Pajunk Needle Gauge: 21 Ultrasound used to visualize needle placement: Yes Ultrasound used to observe medication spread: Yes Blood Aspirated: No Pain Paresthesia on Injection Noted: No Resistance on Injection: Normal Image Stored and Saved: Yes Events: Uneventful and Well Tolerated (Ropivacaine 0.5% 15 cc plus dexamethasone 4 mg plusnormal saline 10 cc given bilaterally at L1)
--- NOTE | 2024-06-03 12:38 | P.OP ---
Date of Procedure: 06/03/24 Preoperative Diagnosis: Prostate cancer Postoperative Diagnosis: Same Procedure(s) Performed: Robotic assisted laparoscopic radical prostatectomy with bilateral pelvic lymph node dissection Implants: None Anesthesia: LUIS FELIPEA Surgeon: David Conn Estimated Blood Loss (ml): 200 Pathology: other (Prostate, bilateral seminal vesicle, bilateral pelvic lymph nodes) Condition: stable Disposition: PACU Indications for Procedure: This is a 68-year-old male with history of [place] 7 prostate cancer, option of robotic radical prostatectomy versus radiation therapy. Risk and benefit of each approach were discussed. Patient is not interested in radiation therapy and would like to proceed with prostatectomy, aware the risk which includes but not limited to bleeding, infection, urinary incontinence, erectile dysfunction. Discussed also risk of injury to nearby organs. Discussed also risk of cancer recurrence and potential of needing additional treatment. Discussed also need for postoperative surveillance. Discussed with him given his previous history of ex lap and bowel resection potential of bowel injury and if there is significant adhesion I may not be able to perform the procedure. He understood all the risk and agreed to proceed Description of Procedure: After preoperative antibiotics were started, the patient was taken to the operating room. Anesthesia was induced and the patient was placed in a supine position, with adequate padding of the pressure points, shoulders, back, legs and arms. He was then prepped and draped in the standard fashion. A critical pause was performed using two patient identifiers. A 16F sampson catheter was placed to gravity drainage. a midline incision was made above the umilibus . Subcutaneous tissue was dissected down using cautery. Next the fascia was incised sharply, next the peritoneum was incised using the Metzenbaum scissors, at this point using finger dissection. The omentum was adherent to the peritoneum superiorly. Using finger dissection I was able to sweep the omentum down. At this point the gel point was placed. pneumo- peritoneum was created with placement of a Veress needle to 20 mm Hg without complication, and a 8 Fr trocar was placed above the umbillicus. Under direct vision a 8mm robotic ports was placed lateral to each rectus slightly below the camera port. The left iliac fossa 8mm port was placed. The right assistant toddler teacher right iliac fossa 12mm port and right paramedian 5mm portwere placed. After the patient was placed in the trendelenberg position, the robot was then docked to the 8mm robotic ports and then each robotic arm and tower was checked in relation to the patient's legs and hands to avoid inadvertent compression. The peritoneal cavity was inspected. An inverted U-shaped incision began laterally to the left medial umbilical ligament and extended high across the midline to the right umbilical ligament. The limbs of the "U" extended to the level of the vasa on both sides. We next developed the preperitoneal space and the space of Retzius. Cautery was used to dissected the bladder away from the prostate. After the anterior bladder neck was incised and the bladder entered the the posterior bladder neck was exposed and the ureteral orifces identified. The posterior bladder neck was then incised and dissected away from the prostate. The vas and the seminal vesicles were now exposed and dissected to their insertions into the prostate and were not spared. The posterior layer of the Denonvillier's fascia was incised to enter adonis the plane between prostate and perirectal fat. Lateral pedicle was controlled using the vessel sealer. Partial nerve preservation was performed bilaterally.. The puboprostatic ligament was incised where it inserted into the apex of the prostate and a plane between urethra and dorsal venous complex developed to expose the anterior urethral surface. There was significant inflammatory response and adherent tissue along the prostate urethra plane, it was difficult to clearly define that plane as there was no anatomical plane at that level anteriorly. Using sharp dissection the prostate was swept away from the urethra,. the anterior wall of the urethra was transected with the cut setting a few millimeters distal to the apex of the prostate. The dorsal vein was ligated using 3-0 V lock bilateral obturator and external iliac lymph node packets were carefully dissected after careful visualization of the hypogastric artery and obturator nerve. There was careful attention paid to hemostasis with judicious use of cautery. The urethrovesical anastomosis was performed . the posterior denovillers was reapproximated using 3-0 V lock. A 6 and 9 inch 3-0 V-Lock suture was used to anastomose the urethra and bladder, starting at the 6:00 posterior position. Mucosa was secured in every stitch, to ensure a mucosa to mucosa anastomosis. The stitch was regularly cinched and the anastomosis tightened. Care was taken to not violate the ureteral orifices. The Sampson catheter was advanced, the bladder filled, and the anastomosis was tested, as described above. Anastomsis was watertight at 150 mL The periumbilical fascia was closed with 1-0-PDS suture in [id number] fashion. All ports were closed with a subcuticular 4-0 monocryl and Dermabond. Sponge, instrument, and needle counts were correct at the end of the case x2. All specimens including prostate and lymph nodes were sent to pathology for diagnosis and will be available in a week. The patient tolerated the surgery well and without complication. He awoke without difficulty and was taken to the recovery room in stable condition
[2024-06-03] MEDS: KETOROLAC 15 MG/ML 1 ML VIAL IVP SCH (13:34)
[2024-06-03] MEDS: HEPARIN SODIUM,PORCINE 5,000 UNIT/ML 1 ML VIAL SQ SCH (13:49)
[2024-06-03] MEDS: DEXTROSE 5%-0.45% NACL 1,000 ML IV SCH (13:49)
[2024-06-03] MEDS: DILTIAZEM CD 120 MG CAP.ER.24H PO SCH (18:17)
[2024-06-03] MEDS ORDERED: DILTIAZEM CD 120 MG CAP.ER.24H PO SCH (19:00)
[2024-06-03] MEDS: polyethylene glycoL 3350 17 GM POWD.PACK PO SCH (20:33)
[2024-06-03] MEDS: ALPRAZolam 0.25 MG TAB PO SCH (20:34)
[2024-06-03] MEDS: SIMETHICONE 80 MG CHEWABLE PO PRN (20:34)
[2024-06-03] MEDS: SYMBICORT 160-4.5 MCG INHALER INHALATION SCH (21:22)
[2024-06-04] MEDS: MAGNESIUM OXIDE 400 MG TAB PO SCH (06:48)
[2024-06-04] MEDS: HYDROcodone/APAP 5-325MG 1 EACH TAB PO PRN (07:36)
[2024-06-04] MEDS: PANTOPRAZOLE 40 MG TABLET PO SCH (09:54)
[2024-06-04] MEDS: SCOPOLAMINE 1 MG/72 HR PATCH TRANSDERM SCH (09:54)
[2024-06-04 10:02] LABS: HCT 32.2 % (39.0-53.0); HGB 10.4 gm/dL (13.0-17.5); Hypochromasia Slight; MCH 29.2 pg (25.0-35.0); MCHC 32.5 g/dL (31.0-37.0); MCV 89.9 fL (80.0-100.0); Mean Platelet Volume 8.1; Platelet Count 214 k/uL (150-450); RBC 3.58 m/uL (4.30-5.90); RDW 13.9 % (11.5-15.5)
[2024-06-04 10:29] LABS: ALT 13 U/L (4-49); AST 23 U/L (17-59); African American GFR (CKD) >90 (>60 ml/min/1.73 sqM); Albumin 2.9 g/dL (3.5-5.0); Albumin/Globulin Ratio 1.3; Alkaline Phosphatase 81 U/L (38-126); Anion Gap 6 mmol/L; Blood Urea Nitrogen 16 mg/dL (9-20); Calcium 8.5 mg/dL (8.4-10.2); Carbon Dioxide 21 mmol/L (22-30); Chloride 105 mmol/L (98-107); Globulin 2.3 g/dL; Glucose 199 mg/dL (74-99); Non-African American GFR(CKD) 79 (>60 ml/min/1.73 sqM); Potassium 4.1 mmol/L (3.5-5.1); Sodium 132 mmol/L (137-145); Total Bilirubin 0.4 mg/dL (0.2-1.3); Total Protein 5.2 g/dL (6.3-8.2)
--- NOTE | 2024-06-04 10:58 | P.CONS ---
History of Present Illness - Reason for Consult Consult date: 06/04/24 Medical management Requesting physician: David Conn - Chief Complaint Severe dizziness, prostate cancer, A-fib with RVR with arrhythmia. - History of Present Illness HISTORY OF PRESENT ILLNESS: 68-year-old with active medical history of prostate cancer, A-fib with RVR, history of asthma, anxiety attacks mild anemia who lives in [place] year-round lives in [place] in the summer only was diagnosed with significantly elevated PSA with biopsy positive for prostate cancer was planning to do robotic prostatectomy early but he ended up with fall and fractured hip in April ended up having ORIF of the right hip Dr. Martinez back in April 2024 and ended up going [place] [facility] [place] developed to have severe urinary retention with Quintanilla catheter and had also mild hematuria. Original plan for him to have robotic assisted prostatectomy for prostate cancer was supposed to be done in May 19 was delayed till June 03, 2024. The patient had his surgery yesterday successfully with Dr. Conn did well continue to have Quitnanilla catheter and with a twinge of blood was admitted to the floor he woke up this morning having significant dizziness and lightheadedness does not feel safe to sit up straight or ambulate without at least 1 person medication assistant. Was seen patient for medical management versus surgery will initiate Transderm scopolamine patch also continue hydration and continue to watch patient for any further complication of his A-fib with RVR. Will have patient on email specialist and physical therapy to ambulate patient carefully after surgery was told to take it easy good part of the day today till his dizziness improved. REVIEW OF SYSTEMS: CONSTITUTIONAL: Well-developed no acute respiratory distress. EYES: No icterus sclerae, no conjunctivitis. EARS, NOSE, MOUTH, THROAT, and FACE: No sore throat, lymphadenopathy, carotid bruits or deformity. RESPIRATORY: No SOB cough or wheezes. CARDIOVASCULAR: History of A-fib no chest pain palpitation angina or shortness of breath. GASTROINTESTINAL: No Abd pain, Nausea or vomiting, no Diarrhea or constipation, No GI Bleed, no distention or masses. GENITOURINARY: Has a Quintanilla catheter in with range of blood his incision in the lower part of his abdominal area from his robotic assisted prostatectomy looks good. INTEGUMENT/BREAST: Negative for any muscular injury with mild osteoarthritis.. HEMATOLOGIC/LYMPHATIC: Negative for bleed or purpura. MUSCULOSKELTAL: Positive pain and discomfort in the right hip exam. NEURLOGICAL: No LOC, Sz or syncope, blurred vision dizziness or abnormality.. BEHAVIORAL/PSYCH: Negative. ENDOCRINE: Negative. PHYSICAL EXAMINATION: General Appearance: Alert, cooperative, no distress, appears stated age. Neck HEENT: Supple, no lymphadenopathy, no thyroid enlargement, no carotid bruits. Lungs: Clear to auscultation without crackles or wheezes no rhonchi, no deformity. Chest Wall: Chest wall normal expansion with deep inspiration no tenderness and no deformity was found on exam, no costochondral pain or discomfort. Heart: Irregular rate and rhythm, S1, S2 mild bradycardia with systolic murmur. Back: Symmetric, no curvature, ROM normal, no CVA tenderness. Abdomen: Soft positive bowel sound incision from his robotic assisted prostate ctomy looking good with no sign of infection irritation no bleeding. Extremities: Slight abrasion of the right forearm and elbow with no fracture no bleeding, right hip had severe pain and discomfort in the groin area with slight external rotation and shorter leg compared to the other side. Pulses: 2+ and symmetric. Skin: Skin color, texture, tugor normal, no rashes or lesions. Neurologic: Alert oriented x3 cranial nerves II through XII intact, no motor deficit, severe dizziness with no other major abnormality at this point patient is laying in bed when turning his head from 1 side to another did not create any major nystagmus. ASSESSMENT AND PLAN: _Prostate cancer post robotic assist prostatectomy was done no complications still have Quintanilla catheter and patient is hemodynamically stable and pain is under control. _Severe dizziness: Not a clear whether it is related to his A-fib or effect of sedation yesterday from his surgery, will continue hydration, Transderm scopolamine patch will be done and ambulate patient slowly with help to avoid any trauma episode suspect of the anesthesia should probably recover in the next few hours today. _Atrial fibrillation: Pulse rates under control patient is on Cardizem will be back on Eliquis as soon as cleared by urology. _Right hip fracture due to trauma from fall post ORIF has been recovered nicely from it able to ambulate and walk with minimal help. _History of asthma: With no flareup continue his Symbicort will add albuterol nebulizer on as-needed basis. _Severe hyperglycemia: Accu-Chek with sliding scales coverage will be done patient is not on any diabetic medication at this point. Will benefit from SGLT2 product with product like Tradjenta. _Mild anemia: Mostly iron deficiency low-grade will require probably iron supplement multivitamin. _Mild anxiety attacks: Has been on alprazolam which will be resumed on as-needed basis. _GI prophylaxis: Patient be on Pepcid 20 mg twice a day. _Anticoagulation: Early mobilization and started back on Eliquis when okay with urology. CODE STATUS: DO NOT RESUSCITATE Dr. Conn thank you much for the consult I can be any further help to please let me know. Past Medical History Past Medical History: Atrial Fibrillation, Asthma, Cancer, Eye Disorder, Hearing Disorder / Deafness, Prostate Disorder, Sleep Apnea/CPAP/BIPAP Additional Past Medical History / Comment(s): severe post nasal drip, HX OF AFIB , HX OF sleep apnea NOT USING CPAP, current prostate cancer-no chemo no radia tion. 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 Rt hip repl aced April 2024. Past Anesthesia/Blood Transfusion Reactions: Motion Sickness, Postoperative Nausea & Vomiting (PONV) Additional Past Anesthesia/Blood Transfusion Reaction / Comm: With surgeries as a child, pt received ether and had vomiting post op Past Psychological History: Anxiety Additional Psychological History / Comment(s): Pt states he has stress in his life r/t elderly parents. Pt resides in [place] and is in [place] visiting his father. He is independent. Smoking Status: Never smoker Past Alcohol Use History: None Reported Past Drug Use History: None Reported - Past Family History Father Family Medical History: Hypertension Additional Family Medical History / Comment(s): Father had a OK at the age of 95 yrs. He is now 96 yrs old. Mother Family Medical History: Dementia Additional Family Medical History / Comment(s): Mother is 95 yrs old. Medications and Allergies Home Medications Medication Instructions Recorded Confirmed Type Budesonide/Formoterol Fumarate 1 puff INHALATION RT-BID PRN 04/08/24 06/03/24 History [Symbicort 160-4.5 Mcg Inhaler] Fluticasone Nasal [place] [Flonase 2 spray EA NOSTRIL DAILY PRN 04/08/24 06/03/24 History Nasal [place]] Magnesium 250 mg PO DAILY@0704/08/24 06/03/24 History Multivit-Min/FA/Lycopen/Lutein 1 tab PO DAILY@0700 04/08/24 06/03/24 History [Centrum Silver Tablet] dilTIAZem HCL [Cardizem CD] 120 mg PO BID@0700,1900 04/08/24 06/03/24 History Apixaban [Eliquis] 5 mg PO BID tab 04/13/24 06/03/24 Rx Tamsulosin [Flomax] 0.4 mg PO PC-SUPPER cap 04/13/24 06/03/24 Rx ALPRAZolam [Xanax] 0.125 tab PO HS 06/01/24 06/03/24 History Miralax(Dose Unknown) 1 dose PO HS 06/01/24 06/03/24 History Ciprofloxacin HCl [Cipro] 250 mg PO Q12HR 3 Days #6 tab 06/03/24 Rx Ketorolac [Toradol] 10 mg PO Q6HR #15 tab 06/03/24 Rx Allergies Allergy/AdvReac Type Severity Reaction Status Date / Time erythromycin base AdvReac Severe Abdominal Verified 06/03/24 06:31 Pain, gi upset metronidazole [From Flagyl] AdvReac Terrible Verified 06/03/24 06:31 GI symptoms/ night sweats/Halucinations Physical Exam Vitals: Vital Signs Temp Pulse Resp BP Pulse Ox 06/04/24 01:46 98.2 F 91 17 114/63 98 06/03/24 19:36 98.0 F 89 17 110/68 98 06/03/24 18:15 98 124/74 06/03/24 15:56 87 127/76 97 06/03/24 15:41 91 105/79 97 06/03/24 15:26 81 119/67 94 L 06/03/24 15:11 80 114/64 93 L 06/03/24 14:56 83 116/67 93 L 06/03/24 14:41 83 116/65 94 L 06/03/24 14:26 82 114/65 90 L 06/03/24 14:11 97.5 F L 90 16 138/73 97 06/03/24 13:48 93 16 122/67 95 06/03/24 13:42 97.5 F L 80 17 114/65 95 06/03/24 13:33 87 16 121/66 95 06/03/24 13:18 86 16 122/67 100 06/03/24 13:03 85 16 123/64 100 06/03/24 12:48 86 15 116/63 100 06/03/24 12:39 87 15 116/62 100 06/03/24 12:27 97.3 F L 91 16 113/62 96 Intake and Output 06/03/24 06/04/24 06/04/24 22:59 06:59 14:59 Intake Total 850 Output Total 1000 Balance 850 -1000 Intake: Intake, IV Titration 650 Amount Dextrose 5%-0.45% NaCl 1, 650 000 ml @ 125 mls/hr IV . Q8H [facility] Rx#:[id number] Oral 200 Output: Urine 1000 Other: Voiding Method Indwelling Catheter Results CBC & Chem 7: 06/04/24 09:22 06/04/24 09:22
[2024-06-04 12:00] LABS: Glucose,Whole Blood 188 mg/dL (70-110)
[2024-06-04 12:09] LABS: T4, Free (Free Thyroxine) 0.94 ng/dL (0.78-2.19)
[2024-06-04] MEDS: INSULIN ASPART (NovoLOG) 100 UNIT/ML VIAL SQ SCH ×2 (13:02→23:03)
[2024-06-04 16:27] LABS: Glucose,Whole Blood 179 mg/dL (70-110)
--- NOTE | 2024-06-04 18:02 | P.PN ---
Subjective No acute overnight event, having diffuse abdominal pain. Denies any nausea or vomiting. Hemodynamically stable. Also complaining of dizziness, vital signs is within normal limits Objective - Vital Signs Vital signs: Vital Signs Temp 98.3 F 06/04/24 12:47 Pulse 84 06/04/24 12:47 Resp 15 06/04/24 12:47 BP 111/66 06/04/24 12:47 Pulse Ox 98 06/04/24 12:47 FiO2 Intake & Output 06/03/24 06/04/24 06/04/24 18:59 06:59 18:59 Intake Total 2550 Output Total 600 1000 2300 Balance 1950 -1000 -2300 Weight 65.5 kg Intake: IV 1700 Intake, IV Titration 650 Amount Dextrose 5%-0.45% NaCl 1, 650 000 ml @ 125 mls/hr IV . Q8H [facility] Rx#:[id number] Oral 200 Output: Urine 400 1000 2300 Estimated Blood Loss 200 Other: Voiding Method Indwelling Catheter Indwelling Catheter - Constitutional General appearance: Present: no acute distress - Gastrointestinal General gastrointestinal: Present: soft. Absent: distended, tenderness - Psychiatric Psychiatric: Present: A&O x's 3 - Labs CBC & Chem 7: 06/04/24 09:22 06/04/24 09:22 Labs: Abnormal Lab Results - Last 24 Hours (Table) 06/04/24 06/04/24 06/04/24 Range/Units 09:22 09:22 11:58 WBC 12.0 H (3.8-10.6) k/uL RBC 3.58 L (4.30-5.90) m/uL Hgb 10.4 L (13.0-17.5) gm/dL Hct 32.2 L (39.0-53.0) % Sodium 132 L (137-145) mmol/L Carbon Dioxide 21 L (22-30) mmol/L Glucose 199 H (74-99) mg/dL POC Glucose (mg/dL) 188 H (70-110) mg/dL Total Protein 5.2 L (6.3-8.2) g/dL Albumin 2.9 L (3.5-5.0) g/dL TSH 0.320 L (0.465-4.680) mIU/L 06/04/24 Range/Units 16:25 WBC (3.8-10.6) k/uL RBC (4.30-5.90) m/uL Hgb (13.0-17.5) gm/dL Hct (39.0-53.0) % Sodium (137-145) mmol/L Carbon Dioxide (22-30) mmol/L Glucose (74-99) mg/dL POC Glucose (mg/dL) 179 H (70-110) mg/dL Total Protein (6.3-8.2) g/dL Albumin (3.5-5.0) g/dL TSH (0.465-4.680) mIU/L Assessment and Plan Assessment: Status post robotic prostatectomy yesterday, having diffuse abdominal pain. And dizziness. Hemodynamically stable. Hemoglobin is 10.4 from 12.2 which is expected post Prostatectomy -Follow-up on internal medicine Recs -Keep Quintanilla catheter in place, will need to keep the catheter for 10 days, follow-up as an outpatient for catheter removal -Ambulate once the dizziness resolves
[2024-06-04 20:48] LABS: Glucose,Whole Blood 175 mg/dL (70-110)
[2024-06-05 06:27] LABS: Glucose,Whole Blood 169 mg/dL (70-110)
[2024-06-05] MEDS: FAMOTIDINE 20 MG TAB PO SCH (08:11)
[2024-06-05 11:54] LABS: Glucose,Whole Blood 149 mg/dL (70-110)
[2024-06-05] MEDS: LINAGLIPTIN 5 MG TABLET PO SCH (12:01)
[2024-06-05] MEDS: SODIUM CHLORIDE 0.9% 1,000 ML IV SCH (12:04)
[2024-06-05] MEDS ORDERED: ETODOLAC 400 MG TAB PO PRN (13:06)
--- NOTE | 2024-06-05 13:08 | P.PN ---
Subjective Progress Note Date: 06/05/24 second postoperative day radical prostatectomy. He feels well other than dizziness. He attributes the dizziness perhaps to be narcotics. His wound looks good. His vital signs are stable he is afebrile. Objective - Vital Signs Vital signs: Vital Signs Temp 98.1 F 06/05/24 07:02 Pulse 69 06/05/24 08:07 Resp 17 06/05/24 08:07 BP 109/67 06/05/24 07:02 Pulse Ox 97 06/05/24 07:02 FiO2 Intake & Output 06/04/24 06/05/24 06/05/24 18:59 06:59 18:59 Output Total 2300 1900 Balance -2300 -1900 Output: Urine 2300 1900 Other: Voiding Method Indwelling Catheter Indwelling Catheter - Labs CBC & Chem 7: 06/04/24 09:22 06/04/24 09:22 Labs: Abnormal Lab Results - Last 24 Hours (Table) 06/04/24 06/04/24 06/05/24 Range/Units 16:25 20:47 06:26 POC Glucose (mg/dL) 179 H 175 H 169 H (70-110) mg/dL 06/05/24 Range/Units 11:52 POC Glucose (mg/dL) 149 H (70-110) mg/dL Assessment and Plan Assessment: impression: Postoperative radical prostatectomy Recommendations: I will stop the narcotics which may be contributing to the dizziness. He is been placed on Toradol. We'll observe him another 24 hours.
[2024-06-05 16:53] LABS: Glucose,Whole Blood 124 mg/dL (70-110)
[2024-06-05 20:28] LABS: Glucose,Whole Blood 117 mg/dL (70-110)
[2024-06-06 11:12] LABS: Glucose,Whole Blood 102 mg/dL (70-110)
--- NOTE | 2024-06-06 11:32 | P.PN ---
Subjective Progress Note Date: 06/06/24 the patient is in his third postoperative day from a robotic-assisted radical prostatectomy by Dr. Conn. The dizziness seems to have disappeared. I stopped his narcotics of. He is still having some abdominal discomfort which is probably gas. Vital signs are stable. Objective - Vital Signs Vital signs: Vital Signs Temp 98.0 F 06/06/24 06:52 Pulse 75 06/06/24 06:52 Resp 18 06/06/24 06:52 BP 133/80 06/06/24 06:52 Pulse Ox 98 06/06/24 06:52 FiO2 Intake & Output 06/05/24 06/06/24 06/06/24 18:59 06:59 18:59 Output Total 700 975 Balance -700 -975 Output: Urine 700 975 Other: Voiding Method Indwelling Catheter Indwelling Catheter - Labs CBC & Chem 7: 06/04/24 09:22 06/04/24 09:22 Labs: Abnormal Lab Results - Last 24 Hours (Table) 06/05/24 06/05/24 06/05/24 Range/Units 11:52 16:51 20:19 POC Glucose (mg/dL) 149 H 124 H 117 H (70-110) mg/dL Assessment and Plan Assessment: impression: Postoperative day #3 post radical prostatectomy. Recommendations: The patient is recuperating but I do not think he is ready to go home since he lives by himself. I think he is too anxious and still having too much discomfort to send him home by himself. We will ambulate more today to try to relieve himself of the gas. Hopefully he will be ready to be discharged home tomorrow.
[2024-06-06 16:43] LABS: Glucose,Whole Blood 110 mg/dL (70-110)
--- NOTE | 2024-06-06 17:20 | P.PN ---
Subjective Progress Note Date: 06/05/24 HISTORY OF PRESENT ILLNESS: 68-year-old with active medical history of prostate cancer, A-fib with RVR, history of asthma, anxiety attacks mild anemia who lives in [place] year-round lives in [place] in the summer only was diagnosed with significantly elevated PSA with biopsy positive for prostate cancer was planning to do robotic prostatectomy early but he ended up with fall and fractured hip in April ended up having ORIF of the right hip Dr. Martinez back in April 2024 and ended up going to rehab in [facility] on the [place] for few weeks developed to have severe urinary retention with Quintanilla catheter and had also mild hematuria. Original plan for him to have robotic assisted prostatectomy for prostate cancer was supposed to be done in May 19 was delayed till June 03, 2024. The patient had his surgery yesterday successfully with Dr. Conn did well continue to have Quintanilla catheter and with a twinge of blood was admitted to the floor he woke up this morning baptiste ving significant dizziness and lightheadedness does not feel safe to sit up straight or ambulate without at least 1 person respiratory therapy assistant. Was seen patient for medical management versus surgery will initiate Transderm scopolamine patch also continue hydration and continue to watch patient for any further complication of his A-fib with RVR. Will have patient on pvc monitor and physical therapy to ambulate patient carefully after surgery was told to take it easy good part of the day today till his dizziness improved. 06/05/2024: Patient still have a catheter and a twinge of blood, blood sugars mildly elevated, pain is under control, continue to have significant dizziness and continue complain of significant bloating sensation and gas in the abdominal area which she feels quite well and comfortable with mild nausea feeling. His A-fib is well-controlled currently with Cardizem still on heparin subcutaneous and off Eliquis currently till probably Friday. Had to use 1 dose of scopolamine patch which seem to control his dizziness slightly better also for his hyperglycemia was started on Tradjenta blood sugar still average below 120 without side effect of medication. REVIEW OF SYSTEMS: CONSTITUTIONAL: Well-developed no acute respiratory distress. EYES: No icterus sclerae, no conjunctivitis. EARS, NOSE, MOUTH, THROAT, and FACE: No sore throat, lymphadenopathy, carotid bruits or deformity. RESPIRATORY: No SOB cough or wheezes. CARDIOVASCULAR: History of A-fib no chest pain palpitation angina or shortness of breath. GASTROINTESTINAL: No Abd pain, Nausea or vomiting, no Diarrhea or constipation, No GI Bleed, no distention or masses. GENITOURINARY: Has a Quintanilla catheter in with range of blood his incision in the lower part of his abdominal area from his robotic assisted prostatectomy looks good. INTEGUMENT/BREAST: Negative for any muscular injury with mild osteoarthritis.. HEMATOLOGIC/LYMPHATIC: Negative for bleed or purpura. MUSCULOSKELTAL: Positive pain and discomfort in the right hip exam. NEURLOGICAL: No LOC, Sz or syncope, blurred vision dizziness or abnormality.. BEHAVIORAL/PSYCH: Negative. ENDOCRINE: Negative. PHYSICAL EXAMINATION: General Appearance: Alert, cooperative, no distress, appears stated age. Neck HEENT: Supple, no lymphadenopathy, no thyroid enlargement, no carotid bruits. Lungs: Clear to auscultation without crackles or wheezes no rhonchi, no deformity. Chest Wall: Chest wall normal expansion with deep inspiration no tenderness and no deformity was found on exam, no costochondral pain or discomfort. Heart: Irregular rate and rhythm, S1, S2 mild bradycardia with systolic murmur. Back: Symmetric, no curvature, ROM normal, no CVA tenderness. Abdomen: Soft positive bowel sound incision from his robotic assisted prostatectomy looking good with no sign of infection irritation no bleeding. Extremities: Slight abrasion of the right forearm and elbow with no fracture no bleeding, right hip had severe pain and discomfort in the groin area with slight external rotation and shorter leg compared to the other side. Pulses: 2+ and symmetric. Skin: Skin color, texture, tugor normal, no rashes or lesions. Neurologic: Alert oriented x3 cranial nerves II through XII intact, no motor deficit, severe dizziness with no other major abnormality at this point patient is laying in bed when turning his head from 1 side to another did not create any major nystagmus. ASSESSMENT AND PLAN: _Prostate cancer post robotic assist prostatectomy continue to watch patient hemodynamic status he seems to do very well continue to have slight discomfort with bloating sensation and gas with nausea. _Severe dizziness: Has improved significantly and continues to have slight problem with his equilibrium and gait specially when attempt to walk will require little bit help at this point till his recover. Continue scopolamine patch. _Atrial fibrillation: Pulse rates under control patient is on Cardizem will be back on Eliquis probably around Friday. _Right hip fracture due to trauma from fall post ORIF has been recovered nicely from it able to ambulate and walk with minimal help. _History of asthma: With no flareup continue his Symbicort will add albuterol nebulizer on as-needed basis. _Severe hyperglycemia: We added Tradjenta 5 mg a day and continue Accu-Chek sliding scales coverage with seem to hold well with blood sugar less than 150. _Mild anemia: Mostly iron deficiency low-grade will require probably iron supplement multivitamin. _Mild anxiety attacks: Has been on alprazolam which will be resumed on as-needed basis. _GI prophylaxis: Patient be on Pepcid 20 mg twice a day. _Anticoagulation: Early mobilization and started back on Eliquis most likely on Friday. Pain management: Patient is doing very well on Lodine and Tylenol. Objective - Vital Signs Vital signs: Vital Signs Temp 98.1 F 06/05/24 07:02 Pulse 69 06/05/24 08:07 Resp 17 06/05/24 08:07 BP 109/67 06/05/24 07:02 Pulse Ox 97 06/05/24 07:02 FiO2 Intake & Output 06/04/24 06/05/24 06/05/24 18:59 06:59 18:59 Output Total 2300 1900 Balance -2300 -1900 Output: Urine 2300 1900 Other: Voiding Method Indwelling Catheter Indwelling Catheter - Labs CBC & Chem 7: 06/04/24 09:22 06/04/24 09:22 Labs: Abnormal Lab Results - Last 24 Hours (Table) 06/04/24 06/04/24 06/04/24 Range/Units 09:22 11:58 16:25 Sodium 132 L (137-145) mmol/L Carbon Dioxide 21 L (22-30) mmol/L Glucose 199 H (74-99) mg/dL POC Glucose (mg/dL) 188 H 179 H (70-110) mg/dL Total Protein 5.2 L (6.3-8.2) g/dL Albumin 2.9 L (3.5-5.0) g/dL TSH 0.320 L (0.465-4.680) mIU/L 06/04/24 06/05/24 Range/Units 20:47 06:26 Sodium (137-145) mmol/L Carbon Dioxide (22-30) mmol/L Glucose (74-99) mg/dL POC Glucose (mg/dL) 175 H 169 H (70-110) mg/dL Total Protein (6.3-8.2) g/dL Albumin (3.5-5.0) g/dL TSH (0.465-4.680) mIU/L
--- NOTE | 2024-06-06 17:24 | P.PN ---
Subjective Progress Note Date: 06/06/24 HISTORY OF PRESENT ILLNESS: 68-year-old with active medical history of prostate cancer, A-fib with RVR, history of asthma, anxiety attacks mild anemia who lives in [place] year-round lives in [place] in the summer only was diagnosed with significantly elevated PSA with biopsy positive for prostate cancer was planning to do robotic prostatectomy early but he ended up with fall and fractured hip in April ended up having ORIF of the right hip Dr. Martinez back in April 2024 and ended up going to rehab in [facility] on the [place] for few weeks developed to have severe urinary retention with Quintanilla catheter and had also mild hematuria. Original plan for him to have robotic assisted prostatectomy for prostate cancer was supposed to be done in May 19 was delayed till June 03, 2024. The patient had his surgery yesterday successfully with Dr. Conn did well continue to have Quintanilla catheter and with a twinge of blood was admitted to the floor he woke up this morning baptiste ving significant dizziness and lightheadedness does not feel safe to sit up straight or ambulate without at least 1 person talent assistant. Was seen patient for medical management versus surgery will initiate Transderm scopolamine patch also continue hydration and continue to watch patient for any further complication of his A-fib with RVR. Will have patient on conveyor monitor and physical therapy to ambulate patient carefully after surgery was told to take it easy good part of the day today till his dizziness improved. 06/05/2024: Patient still have a catheter and a twinge of blood, blood sugars mildly elevated, pain is under control, continue to have significant dizziness and continue complain of significant bloating sensation and gas in the abdominal area which she feels quite well and comfortable with mild nausea feeling. His A-fib is well-controlled currently with Cardizem still on heparin subcutaneous and off Eliquis currently till probably Friday. Had to use 1 dose of scopolamine patch which seem to control his dizziness slightly better also for his hyperglycemia was started on Tradjenta blood sugar still average below 120 without side effect of medication. 06/2024: Patient is very stable still having problem with ability to walk and ambulate, continue to have slight discomfort with his Current management because no help around with his recent hip fracture make the possibility of complications with higher urology and delaying his discharge at least an extra day. Blood sugar has been running much better so far continue Tradjenta continue Accu-Chek with sliding scales coverage. REVIEW OF SYSTEMS: CONSTITUTIONAL: Well-developed no acute respiratory distress. EYES: No icterus sclerae, no conjunctivitis. EARS, NOSE, MOUTH, THROAT, and FACE: No sore throat, lymphadenopathy, carotid bruits or deformity. RESPIRATORY: No SOB cough or wheezes. CARDIOVASCULAR: History of A-fib no chest pain palpitation angina or shortness of breath. GASTROINTESTINAL: No Abd pain, Nausea or vomiting, no Diarrhea or constipation, No GI Bleed, no distention or masses. GENITOURINARY: Has a Quintanilla catheter in with range of blood his incision in the lower part of his abdominal area from his robotic assisted prostatectomy looks good. INTEGUMENT/BREAST: Negative for any muscular injury with mild osteoarthritis.. HEMATOLOGIC/LYMPHATIC: Negative for bleed or purpura. MUSCULOSKELTAL: Positive pain and discomfort in the right hip exam. NEURLOGICAL: No LOC, Sz or syncope, blurred vision dizziness or abnormality.. BEHAVIORAL/PSYCH: Negative. ENDOCRINE: Negative. PHYSICAL EXAMINATION: General Appearance: Alert, cooperative, no distress, appears stated age. Neck HEENT: Supple, no lymphadenopathy, no thyroid enlargement, no carotid bruits. Lungs: Clear to auscultation without crackles or wheezes no rhonchi, no deformity. Chest Wall: Chest wall normal expansion with deep inspiration no tenderness and no deformity was found on exam, no costochondral pain or discomfort. Heart: Irregular rate and rhythm, S1, S2 mild bradycardia with systolic murmur. Back: Symmetric, no curvature, ROM normal, no CVA tenderness. Abdomen: Soft positive bowel sound incision from his robotic assisted prostatectomy looking good with no sign of infection irritation no bleeding. Extremities: Slight abrasion of the right forearm and elbow with no fracture no bleeding, right hip had severe pain and discomfort in the groin area with slight external rotation and shorter leg compared to the other side. Pulses: 2+ and symmetric. Skin: Skin color, texture, tugor normal, no rashes or lesions. Neurologic: Alert oriented x3 cranial nerves II through XII intact, no motor deficit, severe dizziness with no other major abnormality at this point patient is laying in bed when turning his head from 1 side to another did not create any major nystagmus. ASSESSMENT AND PLAN: _Prostate cancer post robotic assist prostatectomy doing very well improving as expected. _Severe dizziness: Was most likely the effect of sedation and anesthesia along with slight fluctuation of his blood pressure, not able to exclude completely peripheral vestibulopathy continue Transderm scopolamine patch for now the patient seems to do better with it so far. _Atrial fibrillation: Pulse rates under control patient is on Cardizem will be back on Eliquis probably around Friday. _Right hip fracture due to trauma from fall post ORIF has been recovered nicely from it able to ambulate and walk with minimal help. _History of asthma: With no flareup continue his Symbicort will add albuterol nebulizer on as-needed basis. _Severe hyperglycemia: We added Tradjenta 5 mg a day and continue Accu-Chek sliding scales coverage with seem to hold well with blood sugar less than 150. _Mild anemia: Mostly iron deficiency low-grade will require probably iron supplement multivitamin. Hemoglobin is down to 10.4 still stable at this point. _Mild anxiety attacks: Has been on alprazolam which will be resumed on as-needed basis. _GI prophylaxis: Patient be on Pepcid 20 mg twice a day. _Anticoagulation: Early mobilization and started back on Eliquis most likely on Friday. Pain management: Patient is doing very well on Lodine and Tylenol. Discharge planning: Most likely to be discharged home tomorrow. Objective - Vital Signs Vital signs: Vital Signs Temp 98.7 F 06/06/24 14:00 Pulse 86 06/06/24 14:00 Resp 16 06/06/24 14:00 BP 118/68 06/06/24 14:00 Pulse Ox 96 06/06/24 14:00 FiO2 Intake & Output 06/05/24 06/06/24 06/06/24 18:59 06:59 18:59 Output Total 604 146 9747 Balance -700 -975 -1000 Output: Urine 138 648 3077 Other: Voiding Method Indwelling Catheter Indwelling Catheter - Labs CBC & Chem 7: 06/04/24 09:22 06/04/24 09:22 Labs: Abnormal Lab Results - Last 24 Hours (Table) 06/05/24 Range/Units 20:19 POC Glucose (mg/dL) 117 H (70-110) mg/dL
[2024-06-06 21:38] VITALS: RESP 18
[2024-06-07 01:39] VITALS: BP 125/70; PULSE 79; TEMP 98.1
[2024-06-07] MEDS ORDERED: FAMOTIDINE 20 MG TAB ONE (09:18)
[2024-06-07] MEDS ORDERED: LINAGLIPTIN 5 MG TABLET ONE (09:18)
[2024-06-07] MEDS ORDERED: HEPARIN SODIUM,PORCINE 5,000 UNIT/ML 1 ML VIAL ONE (09:19)
[2024-06-07 11:22] LABS: Glucose,Whole Blood 132 mg/dL (70-110)
[2024-06-07] MEDS ORDERED: KETOROLAC 15 MG/ML 1 ML VIAL ONE (11:48)
== END 2024-06-07 13:50 | disposition home or self-care (01) ==
LOC: OR 05:43 → 4SSUR 12:20
PROVIDERS: ADMIT Urology; ATTEND Urology
DX: C61 Malignant neoplasm of prostate (principal); I48.91 Unspecified atrial fibrillation; I10 Essential (primary) hypertension; G47.33 Obstructive sleep apnea (adult) (pediatric); J45.909 Unspecified asthma, uncomplicated; R42 Dizziness and giddiness; H91.90 Unspecified hearing loss, unspecified ear; R73.9 Hyperglycemia, unspecified; D50.9 Iron deficiency anemia, unspecified; S72.001D Fracture of unspecified part of neck of right femur, subsequent encounter for closed fracture with routine healing; W19.XXXD Unspecified fall, subsequent encounter; F41.9 Anxiety disorder, unspecified; Z79.51 Long term (current) use of inhaled steroids; Z79.01 Long term (current) use of anticoagulants; Z79.899 Other long term (current) drug therapy; Z88.8 Allergy status to other drugs, medicaments and biological substances; Z96.641 Presence of right artificial hip joint; Z66 Do not resuscitate
CPT/HCPCS: 38571; 55866; S2900; 64999; 80053; 82365; 84439; 84443; 85027; 88307; 88309; 93005; 94640; 96372